=== PATIENT | female | born 1960 | race Caucasian/White ===

== ENCOUNTER → 2016-05-15 | Outpatient (CLI) | payer MEDICARE, OTHER ==
[2016-05-15 11:13] LABS: Basophils # (A) 0.1 k/uL (0-0.2); Basophils % (A) 1 %; CH 27.6; CHCM 32.8; Eosinophils # (A) 0.2 k/uL (0-0.7); Eosinophils % (A) 3 %; HCT 40.3 % (34.0-46.0); HDW 2.56; HGB 12.9 gm/dL (11.4-16.0); Luc # (Auto) 0.12; Luc % (Auto) 2; Lymphocytes # (A) 2.3 k/uL (1.0-4.8); Lymphocytes % (A) 28 %; MCV 84.6 fL (80.0-100.0); Mean Platelet Volume 7.1; Monocytes # (A) 0.4 k/uL (0-1.0); Monocytes % (A) 4 %; Neutrophils % (A) 62 %; RBC 4.76 m/uL (3.80-5.40); RDW 14.2 % (11.5-15.5); WBC 8.1 k/uL (3.8-10.6); WBC (Perox) 8.56
[2016-05-15 11:28] LABS: ALT 43 U/L (9-52); AST 24 U/L (14-36); Alkaline Phosphatase 90 U/L (38-126); Anion Gap 12 mmol/L; Blood Urea Nitrogen 9 mg/dL (7-17); Calcium 9.8 mg/dL (8.4-10.2); Carbon Dioxide 27 mmol/L (22-30); Chloride 101 mmol/L (98-107); Glucose 131 mg/dL (74-99); Non-African American GFR(MDRD) >60 (>60 ml/min/1.73 sqM); Potassium 4.2 mmol/L (3.5-5.1); Sodium 140 mmol/L (137-145); Total Bilirubin 0.5 mg/dL (0.2-1.3); Total Protein 6.7 g/dL (6.3-8.2)
[2016-05-15 11:51] LABS: Hemoglobin A1C 6.1 % (4.2-6.1)
[2016-05-15 13:32] LABS: Erythrocyte Sedimentation Rate 16 mm/hr (0-20)
== END | disposition home or self-care (01) ==
LOC: LABWHC1 10:39
PROVIDERS: ATTEND Internal Medicine
DX: E11.9 Type 2 diabetes mellitus without complications (principal); D64.9 Anemia, unspecified; A09 Infectious gastroenteritis and colitis, unspecified
CPT/HCPCS: 36415; 80053; 83036; 85025; 85652; 86677

== ENCOUNTER → 2016-06-19 | Outpatient (CLI) | payer MEDICARE ==
--- NOTE | 2016-06-19 15:22 | XR ---
EXAMINATION TYPE: XR foot complete RT, XR tibia fibula RT, XR ankle complete RT DATE OF EXAM ORDERED: 06/19/2016 3:09 PM HISTORY: right foot pain M79.671. COMPARISON: Previous ankle dated 08/02/2005. FINDINGS: No fracture, dislocation or other acute osseous lesion is seen. Views of the ankle demonstrate no fracture or dislocation. No ankle joint effusion is seen. There is a small plantar calcaneal spur. Note is made of a plantar calcaneal spur. Osseous structures about the foot demonstrate no acute osseous lesion. Once again a plantar calcaneal spurs noted.. IMPRESSION: 1. NO ACUTE OSSEOUS LESION. 2. SMALL, PLANTAR CALCANEAL SPUR.
== END | disposition home or self-care (01) ==
LOC: RADXRMAIN 14:33
PROVIDERS: ATTEND Internal Medicine
DX: M77.31 Calcaneal spur, right foot (principal)

== ENCOUNTER → 2016-08-23 | Outpatient (CLI) | payer MEDICARE ==
[2016-08-23 08:33] LABS: Basophils # (A) 0.1 k/uL (0-0.2); Basophils % (A) 1 %; CHCM 32.3; Eosinophils # (A) 0.3 k/uL (0-0.7); Eosinophils % (A) 3 %; HCT 37.4 % (34.0-46.0); HDW 2.52; HGB 12.3 gm/dL (11.4-16.0); Luc # (Auto) 0.17; Luc % (Auto) 1; Lymphocytes % (A) 24 %; MCH 27.5 pg (25.0-35.0); MCHC 32.8 g/dL (31.0-37.0); Mean Platelet Volume 6.5; Monocytes # (A) 0.6 k/uL (0-1.0); Monocytes % (A) 4 %; Neutrophils # (A) 8.7 k/uL (1.3-7.7); Neutrophils % (A) 68 %; RBC 4.45 m/uL (3.80-5.40); RDW 14.2 % (11.5-15.5); WBC 12.8 k/uL (3.8-10.6); WBC (Perox) 13.21
[2016-08-23 11:20] LABS: ALT 33 U/L (9-52); AST 20 U/L (14-36); Alkaline Phosphatase 82 U/L (38-126); Anion Gap 9 mmol/L; Blood Urea Nitrogen 13 mg/dL (7-17); C Reactive Protein 11.4 mg/L (<10.0); Calcium 10.3 mg/dL (8.4-10.2); Carbon Dioxide 29 mmol/L (22-30); Chloride 101 mmol/L (98-107); Cholesterol 148 mg/dL (<200); Creatine Kinase 77 U/L (30-135); Glucose 114 mg/dL (74-99); HDL Cholesterol 34 mg/dL (40-60); Non-African American GFR(MDRD) >60 (>60 ml/min/1.73 sqM); Potassium 4.2 mmol/L (3.5-5.1); Sodium 139 mmol/L (137-145); Total Bilirubin 0.3 mg/dL (0.2-1.3); Total Protein 6.1 g/dL (6.3-8.2); Triglycerides 210 mg/dL (<150); Uric Acid 4.6 mg/dL (3.7-7.4)
[2016-08-23 14:45] LABS: Erythrocyte Sedimentation Rate 11 mm/hr (0-20)
[2016-08-23 16:20] LABS: ANA w/Reflex to Titer NEGATIVE (NEGATIVE)
[2016-08-23 19:45] LABS: Hemoglobin A1C 6.6 % (4.2-6.1)
== END | disposition home or self-care (01) ==
LOC: LABWHC1 07:56
PROVIDERS: ATTEND Internal Medicine
DX: Z00.00 Encounter for general adult medical examination without abnormal findings (principal); E11.9 Type 2 diabetes mellitus without complications; E78.5 Hyperlipidemia, unspecified; I10 Essential (primary) hypertension; E55.9 Vitamin D deficiency, unspecified
CPT/HCPCS: 36415; 80053; 80061; 82306; 82550; 83036; 84443; 84550; 85025; 85652; 86038; 86140; 86225

== ENCOUNTER → 2016-09-21 | Outpatient (CLI) | payer MEDICARE ==
[2016-09-21 13:16] LABS: Calcium 10.1 mg/dL (8.4-10.2)
[2016-09-21 13:30] LABS: Ionized Calcium 5.3 mg/dL (4.5-5.3)
== END | disposition home or self-care (01) ==
LOC: LABWHC1 12:22
PROVIDERS: ATTEND Internal Medicine
DX: E83.52 Hypercalcemia (principal)
CPT/HCPCS: 36415; 82310; 82330

== ENCOUNTER → 2016-10-04 | Outpatient (CLI) | payer MEDICARE ==
--- NOTE | 2016-10-05 06:38 | XR ---
EXAMINATION TYPE: XR ankle complete RT, XR foot complete RT DATE OF EXAM: 10/04/2016 CLINICAL HISTORY: Right foot and ankle pain for 2 months. TECHNIQUE: Frontal, lateral and oblique images of the right ankle and foot are obtained. COMPARISON: Right ankle and foot x-ray June 19, 2016 FINDINGS: There is no acute fracture/dislocation evident in the right ankle. The ankle mortise appe ars within normal limits. Mild irregularities and spurring along medial malleolus is redemonstrated. There is mild diffuse subcutaneous edema slightly more prominent soft tissue swelling over the medial malleolus redemonstrated. Small inferior calcaneal spur is again seen. There is no acute fracture or dislocation evident in the right foot. Marked flexion third and fourth toes is redemonstrated. Joint spaces are maintained. Overlying soft tissue is unremarkable. IMPRESSION: There is inferior calcaneal spur redemonstrated. No significant change or new finding si nce prior study.
== END | disposition home or self-care (01) ==
LOC: RADXRMAIN 17:25
PROVIDERS: ATTEND Internal Medicine
DX: M77.31 Calcaneal spur, right foot (principal)

== ENCOUNTER 2016-10-14 13:44 | Emergency (ER) | payer MEDICARE ==
[2016-10-14] MEDS ORDERED: LORazepam 2 MG/ML SYRINGE IV STA (14:02)
[2016-10-14] MEDS ORDERED: ONDANSETRON 4 MG/2 ML VIAL IVP STA (14:02)
[2016-10-14] MEDS ORDERED: SODIUM CHLORIDE 0.9% 500 ML IV STA (14:02)
[2016-10-14] MEDS ORDERED: diphenhydrAMINE 50 MG/ML 1 ML VIAL IVP STA (14:02)
--- NOTE | 2016-10-14 14:03 | ED ---
General Adult HPI - General Chief complaint: Allergic Reaction Stated complaint: POSS ALLERGIC REACTION Time Seen by Provider: 10/14/16 13:47 Source: EMS, RN notes reviewed, old records reviewed Mode of arrival: EMS Limitations: no limitations - History of Present Illness Initial comments: this is a [age] female to the ER for evaluation of possible UTI. Possible medication reaction to Bactrim. Patient states she has history of UTI and is taking Bactrim in the past with similar reaction. Today she had some burning and increased urination comment discolored urine. She did take one Bactrim this morning and became very shaky, with a lot of numbness and tingling. No rash no shortness of breath no stridor. No sore throat, no feeling of throat closing, patient states no modifying factors for symptoms, coming to the ER with close same symptoms - Related Data Home Medications Medication Instructions Recorded Confirmed Atenolol [Tenormin] 25 mg PO BID 11/25/13 10/14/16 Atorvastatin [Lipitor] 40 mg PO HS 11/25/13 10/14/16 FLUoxetine HCL 40 mg PO DAILY 11/25/13 10/14/16 Glimepiride [Amaryl] 2 mg PO AC-BRKFST 11/25/13 10/14/16 Cholecalciferol [Vitamin D3] 1,000 unit PO BID 12/30/15 10/14/16 Gabapentin [Neurontin] 100 mg PO TID 12/30/15 10/14/16 Lisinopril [Zestril] 20 mg PO BID 12/30/15 10/14/16 metFORMIN HCL 1,000 mg PO BID 12/30/15 10/14/16 Melatonin 5 mg PO HS 10/14/16 10/14/16 [place]-3 Fatty Acids/Fish Oil [Fish 1 cap PO TID 10/14/16 10/14/16 Oil 1,000 mg Softgel] Sulfamethox-Tmp 800-160Mg [Bactrim 1 tab PO Q12HR 10/14/16 10/14/16 DS 800-160 mg] Vitamin B Complex 1 cap PO DAILY 10/14/16 10/14/16 Previous Rx's Medication Instructions Recorded Nitrofurantoin Monohyd/M-Cryst 100 mg PO Q12HR #10 cap 10/14/16 [Macrobid] Allergies Allergy/AdvReac Type Severity Reaction Status Date / Time hydrocodone bitartrate Allergy Unknown Verified 10/14/16 14:21 [From Vicodin] Sulfa (Sulfonamide AdvReac "PINS AND Verified 10/14/16 14:21 Antibiotics) NEEDLES FEELING" Review of Systems ROS Statement: Those systems with pertinent positive or pertinent negative responses have been documented in the HPI. ROS Other: All systems not noted in ROS Statement are negative. Past Medical History Past Medical History: Diabetes Mellitus, Hyperlipidemia, Hypertension Additional Past Medical History / Comment(s): PARKINSONS, BACK PAIN History of Any Multi-Drug Resistant Organisms: None Reported Past Surgical History: Cholecystectomy, Hysterectomy, Tonsillectomy, Tubal Ligation Additional Past Surgical History / Comment(s): PARKINSONS Past Psychological History: No Psychological Hx Reported Smoking Status: Current every day smoker Past Alcohol Use History: Rare Past Drug Use History: None Reported General Exam - General Exam Comments Initial Comments: No rash, no stridor, no distress Limitations: no limitations General appearance: alert, in no apparent distress Head exam: Present: atraumatic, normocephalic, normal inspection Eye exam: Present: normal appearance, PERRL, EOMI. Absent: scleral icterus, conjunctival injection, periorbital swelling ENT exam: Present: normal exam, mucous membranes moist Neck exam: Present: normal inspection. Absent: tenderness, meningismus, lymphadenopathy Respiratory exam: Present: normal lung sounds bilaterally. Absent: respiratory distress, wheezes, rales, rhonchi, stridor Cardiovascular Exam: Present: regular rate, normal rhythm, normal heart sounds. Absent: systolic murmur, diastolic murmur, rubs, gallop, clicks GI/Abdominal exam: Present: soft, normal bowel sounds. Absent: distended, tenderness, guarding, rebound, rigid Extremities exam: Present: normal inspection, full ROM, normal capillary refill. Absent: tenderness, pedal edema, joint swelling, calf tenderness Back exam: Present: normal inspection Neurological exam: Present: alert, oriented X3, CN II-XII intact Psychiatric exam: Present: normal affect, normal mood Skin exam: Present: warm, dry, intact, normal color. Absent: rash Course Vital Signs 10/14/16 10/14/16 10/14/16 13:49 14:36 14:59 Temperature 98.7 F Pulse Rate 72 68 71 Respiratory 18 18 20 Rate Blood Pressure 159/76 163/70 187/86 O2 Sat by Pulse 96 93 L 97 Oximetry - Reevaluation(s) Reevaluation #1: 10/14/16 15:39 Symptoms improved Medical Decision Making - Medical Decision Making [id number] med ER for evaluation of ALLERGIC versus medication reaction, patient told to stop medication will switch antibiotics positive urinary check infection and patient can be discharged home Disposition Clinical Impression: Allergic reaction, Adverse reaction to drug, UTI (urinary tract infection) Disposition: HOME SELF-CARE Condition: Good Instructions: Urinary Tract Infection in Women (ED), Anaphylaxis (ED) Prescriptions: Nitrofurantoin Monohyd/M-Cryst [Macrobid] 100 mg PO Q12HR #10 cap Referrals: Valentino Juarez MD [Primary Care Provider] - 1-2 days
[2016-10-14 15:16] LABS: Appearance,Urine Cloudy (Clear); Bacteria,Urine Occasional /hpf; Bilirubin,Urine Negative (Negative); Glucose,Urine (UA) Negative (Negative); Ketones,Urine Negative (Negative); Leukocyte Esterase,Urine Negative (Negative); Mucus,Urine Rare /hpf; Nitrite,Urine Negative (Negative); PH, Urine 7.5 (5.0-8.0); Particle Count 4605; Protein,Urine Trace (Negative); Specific Gravity,Urine 1.009 (1.001-1.035); Squamous Epithelial Cell,Urine 1 /hpf (0-4); UA Billing (MACRO vs. MICRO) MICRO; Urobilinogen,Urine <2.0 mg/dL (<2.0); WBC,Urine 3 /hpf (0-5)
[2016-10-14 15:56] VITALS: BP 159/109; PULSE 68; RESP 18; TEMP 98.4
== END 2016-10-14 15:56 | disposition home or self-care (01) ==
LOC: EC 13:44
DX: R20.2 Paresthesia of skin (principal); T37.0X5A Adverse effect of sulfonamides, initial encounter; N39.0 Urinary tract infection, site not specified; E11.9 Type 2 diabetes mellitus without complications; I10 Essential (primary) hypertension; E78.5 Hyperlipidemia, unspecified; F17.200 Nicotine dependence, unspecified, uncomplicated; Z88.2 Allergy status to sulfonamides; Z88.5 Allergy status to narcotic agent; Z79.84 Long term (current) use of oral hypoglycemic drugs; Z79.899 Other long term (current) drug therapy
CPT/HCPCS: 81001; 87086; 99284; 96374; 96375 ×2; 96361; J2060; J1200; J2405

== ENCOUNTER → 2017-08-31 | Outpatient (CLI) | payer MEDICARE ==
[2017-08-31 10:02] LABS: ALT 62 U/L (9-52); AST 33 U/L (14-36); Albumin 4.3 g/dL (3.5-5.0); Alkaline Phosphatase 78 U/L (38-126); Anion Gap 13 mmol/L; Blood Urea Nitrogen 12 mg/dL (7-17); C Reactive Protein 6.4 mg/L (<10.0); Calcium 10.2 mg/dL (8.4-10.2); Carbon Dioxide 26 mmol/L (22-30); Chloride 102 mmol/L (98-107); Cholesterol 148 mg/dL (<200); Creatine Kinase 112 U/L (30-135); Glucose 149 mg/dL (74-99); HDL Cholesterol 28 mg/dL (40-60); LDL Cholesterol,Calculated 74 mg/dL (0-99); Potassium 4.4 mmol/L (3.5-5.1); Sodium 141 mmol/L (137-145); Total Bilirubin 0.3 mg/dL (0.2-1.3); Total Protein 6.2 g/dL (6.3-8.2); Triglycerides 228 mg/dL (<150); Uric Acid 4.1 mg/dL (3.7-7.4)
[2017-08-31 10:03] LABS: Basophils # (A) 0.1 k/uL (0-0.2); Basophils % (A) 1 %; Eosinophils # (A) 0.2 k/uL (0-0.7); Eosinophils % (A) 3 %; HCT 39.9 % (34.0-46.0); HGB 13.1 gm/dL (11.4-16.0); Lymphocytes # (A) 2.4 k/uL (1.0-4.8); Lymphocytes % (A) 25 %; MCH 27.3 pg (25.0-35.0); MCHC 32.9 g/dL (31.0-37.0); MCV 82.9 fL (80.0-100.0); Mean Platelet Volume 6.5; Monocytes # (A) 0.5 k/uL (0-1.0); Monocytes % (A) 5 %; Neutrophils # (A) 6.1 k/uL (1.3-7.7); Neutrophils % (A) 65 %; Platelet Count 348 k/uL (150-450); RBC 4.81 m/uL (3.80-5.40); RDW 13.5 % (11.5-15.5); WBC 9.4 k/uL (3.8-10.6)
[2017-08-31 11:20] LABS: Erythrocyte Sedimentation Rate 7 mm/hr (0-20)
== END | disposition home or self-care (01) ==
LOC: LABWHC1 09:07
PROVIDERS: ATTEND Internal Medicine
DX: E11.9 Type 2 diabetes mellitus without complications (principal); E78.5 Hyperlipidemia, unspecified; I10 Essential (primary) hypertension; M54.5 Low back pain
CPT/HCPCS: 36415; 80053; 80061; 82306; 82550; 83036; 84550; 85025; 85652; 86140

== ENCOUNTER → 2017-09-11 | Outpatient (CLI) | payer MEDICARE ==
--- NOTE | 2017-09-11 13:42 | XR ---
EXAMINATION TYPE: XR lumbosacral spine min 4V DATE OF EXAM: 09/11/2017 CLINICAL HISTORY: Pain from fall TECHNIQUE: Frontal, lateral, and oblique images of the lumbar spine are obtained. COMPARISON: CT abdomen pelvis December 30, 2015 FINDINGS: There are 5 lumbar type vertebral bodies identified. The lumbar spine shows slight scolio tic curvature without evidence of acute fracture or dislocation. There is persistent slight grade 1 a nterolisthesis L4 on L5. Vertebral body heights remain within normal limits. There is mild disc spac e narrowing L4-L5 level redemonstrated. There is mild to moderate disc space narrowing L5-S1 level re demonstrated. The oblique images appear within normal limits. Facet arthropathy lower lumbar levels i s again seen. Cholecystectomy clips are redemonstrated in the overlying soft tissue. IMPRESSION: No acute fracture or dislocation is seen in the lumbar spine.
--- NOTE | 2017-09-11 13:43 | XR ---
EXAMINATION TYPE: XR thoracic spine complete DATE OF EXAM: 09/11/2017 CLINICAL HISTORY: Fall injury 6 weeks ago with mid back pain. TECHNIQUE: Frontal, lateral, and swimmer's view of thoracic spine are obtained. COMPARISON: None. FINDINGS: Thoracic spine show satisfactory alignment without evidence of acute fracture or dislocatio n. Vertebral body heights and disc space heights are preserved. Mild to minimal multilevel anterior spurring is present. Visualized ribs are unremarkable bilaterally. Cholecystectomy clips are appreci ated. IMPRESSION: No acute fracture or dislocation is seen in the thoracic spine.
== END | disposition home or self-care (01) ==
LOC: RADXRMAIN 13:10
PROVIDERS: ATTEND Internal Medicine
DX: M54.17 Radiculopathy, lumbosacral region (principal); M51.37 Other intervertebral disc degeneration, lumbosacral region
CPT/HCPCS: 72072; 72110

== ENCOUNTER → 2017-12-13 | Outpatient (CLI) | payer MEDICARE ==
[2017-12-13 10:18] LABS: Basophils # (A) 0.1 k/uL (0-0.2); Basophils % (A) 1 %; Eosinophils # (A) 0.2 k/uL (0-0.7); Eosinophils % (A) 2 %; HCT 38.9 % (34.0-46.0); HGB 12.4 gm/dL (11.4-16.0); Lymphocytes # (A) 2.2 k/uL (1.0-4.8); Lymphocytes % (A) 22 %; MCH 26.6 pg (25.0-35.0); MCHC 31.9 g/dL (31.0-37.0); MCV 83.5 fL (80.0-100.0); Mean Platelet Volume 6.3; Monocytes # (A) 0.4 k/uL (0-1.0); Monocytes % (A) 4 %; Neutrophils # (A) 6.9 k/uL (1.3-7.7); Neutrophils % (A) 70 %; Platelet Count 332 k/uL (150-450); RBC 4.66 m/uL (3.80-5.40); RDW 14.1 % (11.5-15.5); WBC 9.8 k/uL (3.8-10.6)
[2017-12-13 10:33] LABS: ALT 63 U/L (9-52); AST 35 U/L (14-36); Albumin 4.2 g/dL (3.5-5.0); Alkaline Phosphatase 77 U/L (38-126); Anion Gap 9 mmol/L; Blood Urea Nitrogen 12 mg/dL (7-17); C Reactive Protein 7.5 mg/L (<10.0); Carbon Dioxide 29 mmol/L (22-30); Chloride 101 mmol/L (98-107); Cholesterol 154 mg/dL (<200); Creatine Kinase 69 U/L (30-135); Glucose 143 mg/dL (74-99); HDL Cholesterol 27 mg/dL (40-60); LDL Cholesterol,Calculated 89 mg/dL (0-99); Potassium 4.3 mmol/L (3.5-5.1); Sodium 139 mmol/L (137-145); Total Bilirubin 0.4 mg/dL (0.2-1.3); Total Protein 6.5 g/dL (6.3-8.2); Triglycerides 189 mg/dL (<150); Uric Acid 4.5 mg/dL (3.7-7.4)
[2017-12-13 11:13] LABS: Erythrocyte Sedimentation Rate 13 mm/hr (0-20)
[2017-12-13 19:37] LABS: Hemoglobin A1C 7.1 % (4.0-6.0)
[2017-12-13 19:42] LABS: Anti-DNA, DS unit <1.0 IU/mL; DNA Double-Stranded NEGATIVE (NEGATIVE)
== END | disposition home or self-care (01) ==
LOC: LABWHC1 08:44
PROVIDERS: ATTEND Internal Medicine
DX: Z00.00 Encounter for general adult medical examination without abnormal findings (principal); E11.9 Type 2 diabetes mellitus without complications; E78.5 Hyperlipidemia, unspecified; I10 Essential (primary) hypertension; E55.9 Vitamin D deficiency, unspecified
CPT/HCPCS: 36415; 80053; 80061; 82306; 82550; 83036; 84443; 84550; 85025; 85652; 86038; 86140; 86225

== ENCOUNTER → 2018-07-24 | Outpatient (CLI) | payer MEDICARE ==
[2018-07-24 20:45] LABS: Hemoglobin A1C 7.3 % (4.0-6.0)
[2018-07-24 20:52] LABS: Creatinine,Urine Random 74.2 mg/dL
[2018-07-24 21:07] LABS: Total Protein,Urine Random 9.6 mg/dL (0.0-13.5)
== END | disposition home or self-care (01) ==
LOC: LABWHC1 10:22
PROVIDERS: ATTEND Internal Medicine
DX: E11.9 Type 2 diabetes mellitus without complications (principal); R80.9 Proteinuria, unspecified
CPT/HCPCS: 36415; 82570; 82947; 83036; 84156

== ENCOUNTER → 2018-11-06 | Outpatient (CLI) | payer MEDICARE ==
--- NOTE | 2018-11-06 08:27 | XR ---
EXAMINATION TYPE: XR knee complete RT DATE OF EXAM: 11/06/2018 CLINICAL HISTORY: Right knee pain after fall February. TECHNIQUE: Three views of the right knee are obtained. COMPARISON: None. FINDINGS: There is no acute fracture/dislocation evident in right knee. However there is subtle yelena ency over the lateral tibial eminence that appears well-corticated on the frontal view. The tri-andrew rtment joint spaces appear aligned however there are small tricompartmental osteophytes. The overlyi ng soft tissue appears unremarkable. IMPRESSION: 1. No acute fracture or dislocation in the right knee. 2. Possible old corticated chip fracture of the lateral tibial eminence that appears healed although correlation for stability of the posterior cruciate ligament is recommended with clinical exam to det ermine the need for MRI. 3. Mild tricompartment arthrosis.
[2018-11-06 16:20] LABS: African American GFR (CKD) 94.2 (60.0-200.0); Anion Gap 10.5 mmol/L (4.00-12.00); Calcium 9.8 mg/dL (8.7-10.3); Carbon Dioxide 25.5 mmol/L (21.6-31.8); Non-African American GFR(CKD) 81.3 (60.0-200.0); Potassium 4.3 mmol/L (3.5-5.5)
[2018-11-06 17:19] LABS: Hemoglobin A1C 6.9 % (4.0-6.0)
== END | disposition home or self-care (01) ==
LOC: LABWHC1 07:39
PROVIDERS: ATTEND Internal Medicine
DX: M17.11 Unilateral primary osteoarthritis, right knee (principal); I10 Essential (primary) hypertension; E11.40 Type 2 diabetes mellitus with diabetic neuropathy, unspecified
CPT/HCPCS: 36415; 80048; 83036

== ENCOUNTER → 2018-12-09 | Outpatient (CLI) | payer MEDICARE ==
--- NOTE | 2018-12-11 08:57 | MM ---
Reason for exam: screening (asymptomatic). Last mammogram was performed 3 years and 7 months ago. History: Patient is postmenopausal and has history of other cancer at age 30. Family history of breast cancer in 2 maternal aunts and breast cancer in maternal grandmother. Physical Findings: A clinical breast exam by your physician is recommended on an annual basis and results should be correlated with mammographic findings. MG 3D Screening Mammo W/Cad Bilateral CC and MLO view(s) were taken. Prior study comparison: May 13, 2015, mammogram, performed at [facility]. January 07, 2014, mammogram, performed at [facility]. There are scattered fibroglandular densities. No significant changes when compared with prior studies. ASSESSMENT: Negative, BI-RAD 1 RECOMMENDATION: Routine screening mammogram of both breasts in 1 year.
== END ==
LOC: RADMAMWWP 13:33
PROVIDERS: ATTEND Internal Medicine
DX: Z12.31 Encounter for screening mammogram for malignant neoplasm of breast (principal)
CPT/HCPCS: 77063; 77067

== ENCOUNTER → 2018-12-12 | Outpatient (CLI) | payer MEDICARE ==
--- NOTE | 2018-12-15 15:17 | MR ---
EXAMINATION TYPE: MR knee RT wo con DATE OF EXAM: 12/12/2018 COMPARISON: Outside radiographs 11/29/2018 HISTORY: 58-year-old female with right knee pain, fall/injury, weakness, hx Parkinson's TECHNIQUE: Multiplanar, multisequence imaging of the right knee is performed without IV contrast. FINDINGS: The ACL, PCL, MCL, and LCL complex are intact. There is a complex tear of the posterior horn and body of the medial meniscus. The body is mildly ext ruded. Moderate thinning of articular cartilage within the mid weightbearing and peripheral aspect of the me dial compartment. Mild marginal spurring is noted. There is a partial tear involving the posterior horn of the lateral meniscus near the posterior root. Small focal moderate thickness cartilage fissure measuring 6 mm AP by 3 mm wide along the mid weight bearing aspect of the lateral femoral condyle. Mild to moderate irregular thinning of patellar articular cartilage and mild fissuring of mid trochle ar articular cartilage is well. Marginal spurring is present in the patellofemoral compartment. Extensor mechanism is intact. Mild prepatellar soft tissue swelling. Underlying small knee joint effu gracia without significant Medina's cyst. Normal popliteal artery anatomy. Generalized muscular atrophy. No suspicious bone marrow replacement. IMPRESSION: 1. Mild to moderate medial and patellofemoral compartment osteoarthrosis. Additional small focal 6 x 3 mm cartilage fissure in the mid weightbearing aspect of the lateral compartment. 2. Complex tear of the posterior horn and body of the medial meniscus with mild extrusion of the body . 3. Partial tear near the posterior root of the lateral meniscus. 4. Small knee joint effusion.
== END | disposition home or self-care (01) ==
LOC: RADMRIMAIN 12:47
PROVIDERS: ATTEND Orthopaedic Surgery
DX: M17.11 Unilateral primary osteoarthritis, right knee (principal); S83.231A Complex tear of medial meniscus, current injury, right knee, initial encounter; S83.281A Other tear of lateral meniscus, current injury, right knee, initial encounter

== ENCOUNTER → 2018-12-30 | Outpatient (CLI) | payer MEDICARE ==
[2018-12-30 15:06] LABS: Basophils # (A) 0.1 k/uL (0-0.2); Basophils % (A) 1 %; Eosinophils # (A) 0.4 k/uL (0-0.7); Eosinophils % (A) 3 %; HCT 38.4 % (34.0-46.0); HGB 12.7 gm/dL (11.4-16.0); Lymphocytes # (A) 4.9 k/uL (1.0-4.8); Lymphocytes % (A) 35 %; MCH 27.6 pg (25.0-35.0); MCHC 33.1 g/dL (31.0-37.0); MCV 83.5 fL (80.0-100.0); Mean Platelet Volume 5.6; Monocytes # (A) 0.8 k/uL (0-1.0); Monocytes % (A) 6 %; Neutrophils # (A) 7.4 k/uL (1.3-7.7); Neutrophils % (A) 53 %; Platelet Count 471 k/uL (150-450); RDW 13.6 % (11.5-15.5); WBC 13.9 k/uL (3.8-10.6)
[2018-12-30 15:13] LABS: Potassium 4.1 mmol/L (3.5-5.1)
== END | disposition home or self-care (01) ==
LOC: LABPAT 14:20
PROVIDERS: ATTEND Orthopaedic Surgery
DX: Z01.818 Encounter for other preprocedural examination (principal); Z01.812 Encounter for preprocedural laboratory examination; M23.91 Unspecified internal derangement of right knee
CPT/HCPCS: 36415; 80051; 85025; 93005

== ENCOUNTER 2019-01-02 12:27 | Day surgery (SDC) | payer MEDICARE, OTHER ==
[2018-12-30 11:15] VITALS: BMI 30.7
--- NOTE | 2019-01-01 18:34 | HP ---
HISTORY AND PHYSICAL DATE OF SURGERY: 01/02/2019 [place] Rm is a 58-year-old patient seen with progressive right knee pain. We discussed options for treatment. She elected to proceed with right knee arthroscopy. Consent was obtained. PAST MEDICAL HISTORY: 1. Hypertension. 2. Jxz-jrdtxcv-fydeisbde diabetes. 3. Depression. PAST SURGICAL HISTORY: 1. Cholecystectomy. 2. Hysterectomy. DAILY MEDICATIONS: 1. Atenolol. 2. Atorvastatin. 3. Fluoxetine. 4. Amlodipine. 5. Lisinopril. 6. Metformin. ALLERGIES: VICODIN. SOCIAL HISTORY: She smokes one pack of cigarettes daily. PHYSICAL EVALUATION OF THE RIGHT KNEE: Range of motion is negative 2/3 to120. Tenderness along the medial joint line. Tenderness along the lateral joint line. Positive medial Azeb's. Positive lateral Azeb's. Mild effusion. Ligaments stable. Hip rotation without pain. Distal neurovascular exam intact. RADIOGRAPHS: Right knee radiographs revealed mild osteoarthritic changes of the medial compartment and moderate osteoarthritic changes of the patellofemoral compartment. An MRI of the right knee revealed medial and lateral meniscal tears. IMPRESSION: 1. Internal derangement, right knee, with medial and lateral meniscal tears. 2. Right knee osteoarthritis. 3. Hypertension. 4. Hyperlipidemia. 5. Goa-ppdgemo-rckxwuayt diabetes. PLAN: Right knee arthroscopy with partial meniscectomy and debridement. MMODL / IJN: [id number] /
[~2019-01-02 12:27] MED LIST: HYDROmorphone 0.5 MG/0.5 ML SYRINGE IVP PRN; LACTATED RINGERS 1,000 ML IV SCH
[2019-01-02] MEDS ORDERED: ONDANSETRON 4 MG/2 ML VIAL IVP ONE (12:52)
[2019-01-02] MEDS ORDERED: LIDOCAINE 1% 20 ML VIAL (10MG/ML) FOR IV START INTRADERMA ONE (12:52)
[2019-01-02] MEDS ORDERED: DEXAMETHASONE SOD PHOS (MDV) 100 MG/10 ML VIAL IV ONE (12:53)
[2019-01-02 13:03] LABS: Glucose,Whole Blood 128 mg/dL (75-99)
[2019-01-02] MEDS ORDERED: ePHEDrine SULFATE/0.9% NACL/PF 50 MG/5 ML SYRINGE IV ONE (13:22)
[2019-01-02] MEDS ORDERED: SUCCINYLCHOLINE CHLORIDE 100 MG/5 ML SYR IV ONE (13:22)
[2019-01-02] MEDS ORDERED: BUPIVACAINE (PF) 0.25% 30 ML VIAL INTRAARTIC ONE (13:22)
[2019-01-02] MEDS ORDERED: PROPOFOL 10 MG/ML 20 ML VIAL IV ONE (13:22)
[2019-01-02] MEDS ORDERED: KETOROLAC 30 MG/ML 1 ML VIAL ONE (13:22)
[2019-01-02] MEDS ORDERED: fentaNYL (PF) 50 MCG/ML 2 ML AMP ONE (13:22)
[2019-01-02] MEDS ORDERED: MIDAZOLAM 2 MG/2 ML VIAL ONE (13:22)
[2019-01-02] MEDS ORDERED: LACTATED RINGERS 1,000 ML IV ONE (14:00)
--- NOTE | 2019-01-02 14:18 | P.OP ---
Date of Procedure: 01/02/19 Preoperative Diagnosis: Internal derangement right knee Postoperative Diagnosis: 1. Tear medial meniscus right knee 2. Grade 2/3 chondromalacia medial femoral condyle right knee 3. Grade 3 chondromalacia lateral femoral condyle right knee 4. Grade 2 chondromalacia patella right knee 5. Reactive synovitis medial, lateral and suprapatellar compartments right knee Procedure(s) Performed: 1. Arthroscopic partial medial meniscectomy right knee 2. Arthroscopic chondroplasty medial femoral condyle right knee 3. Arthroscopic chondroplasty lateral femoral condyle right knee 4. Arthroscopic chondroplasty patella right knee 5. Arthroscopic partial synovectomy medial, lateral and suprapatellar compartments right knee Anesthesia: MELISSAA, local Surgeon: Rigoberto Pacheco Estimated Blood Loss (ml): 8 Pathology: none sent Condition: stable Disposition: PACU Indications for Procedure: 58-year-old patient seen with progressive right knee pain. After having treatment options discussed, she elected to proceed with arthroscopy. Operative Findings: See description of procedure Description of Procedure: Patient was taken to the operative suite. Patient underwent a general anesthetic by the department of anesthesia. Patient was given preoperative antibiotics. The right lower extremity was placed in a well-padded arthroscopic leg navarro. The right leg was prepped and draped in the normal sterile orthopedic fashion. A lateral parapatellar incision was made. Trochar were inserted. Arthroscopy was initiated. Suprapatellar pouch revealed diffuse thick reactive synovitis. The patellofemoral joint appeared to articulate congruently. There was grade 2 chondromalacia of the patella with some osteochondral flap tears present.. The scope was guided into the medial gutter. No loose bodies or plica were identified. The scope was then guided into the medial compartment. A medial parapatellar incision was made. Trocar inserted followed by probe. There was a radial tear posterior horn medial meniscus. There were grade 2/3 chondromalacia changes of the medial femoral condyle with some osteochondral flap tears present. There was thick reactive synovitis anteriorly. I performed a partial medial meniscectomy getting down to stable meniscal tissue. I performed a chondroplasty of the medial femoral condyle down to stable osteochondral tissue. I performed a partial synovectomy decompressing the reactive synovitis anteriorly. The residual meniscus was stable. There was good decompression of the synovitis. The residual osteochondral surface appeared stable. Scope and probe were then guided into the intercondylar notch. Cruciates were identified, probed and found to be stable. The scope and probe were then guided into lateral compartment. There was some fraying of the midbody lateral meniscus. Were grade 3 chondral changes lateral femoral condyle with some large osteochondral flap tears present. There was thick reactive synovitis anteriorly. I debrided those areas of mild fraying with a motorized shaver. I performed a chondroplasty of the lateral femoral condyle getting down to stable osteochondral tissue. I performed a partial synovectomy decompressing the reactive synovitis. The residual osteochondral surface appeared stable. There was good decompression of the synovitis. The scope was in guided back into the suprapatellar compartment. I introduced a motorized shaver into the suprapatellar compartment. I debrided some piecemeal fragments of meniscus I encountered. I performed a partial synovectomy decompressing the reactive synovitis. Shaver was removed. I took one more look around the entire knee, no residual debris. Instruments were now removed from the joint. The joint was infiltrated with .25% Marcaine. Steri-Strips were applied to the portal sites. Sterile dressings were applied. The patient was placed into a CHIQUITA hose. No tourniquet was utilized. The patient was awakened, transferred to a bed and taken to recovery stable satisfactory condition.
[2019-01-02 14:26] VITALS: TEMP 96.2
[2019-01-02 15:58] VITALS: BP 113/74; PULSE 76; RESP 18
== END 2019-01-02 16:21 | disposition home or self-care (01) ==
LOC: OR 12:27
PROVIDERS: ATTEND Orthopaedic Surgery
DX: S83.241A Other tear of medial meniscus, current injury, right knee, initial encounter (principal); X58.XXXA Exposure to other specified factors, initial encounter; M22.41 Chondromalacia patellae, right knee; M65.861 Other synovitis and tenosynovitis, right lower leg; M17.11 Unilateral primary osteoarthritis, right knee; I10 Essential (primary) hypertension; E11.9 Type 2 diabetes mellitus without complications; F17.219 Nicotine dependence, cigarettes, with unspecified nicotine-induced disorders; I25.10 Atherosclerotic heart disease of native coronary artery without angina pectoris; E78.5 Hyperlipidemia, unspecified; I25.2 Old myocardial infarction; F32.9 Major depressive disorder, single episode, unspecified; G20 Parkinson's disease; F39 Unspecified mood [affective] disorder; Z90.49 Acquired absence of other specified parts of digestive tract; Z90.710 Acquired absence of both cervix and uterus; Z79.84 Long term (current) use of oral hypoglycemic drugs; Z79.899 Other long term (current) drug therapy; Z88.5 Allergy status to narcotic agent
CPT/HCPCS: 29881; 29876; J2250; J2405; J3010; J1885; J1100; J0330; J2704; J1170

== ENCOUNTER → 2019-02-15 | Outpatient (CLI) | payer MEDICARE, OTHER ==
[2019-02-15 08:35] LABS: Basophils % (A) 0 %; Eosinophils # (A) 0.3 k/uL (0-0.7); Eosinophils % (A) 3 %; HCT 37.6 % (34.0-46.0); HGB 12.5 gm/dL (11.4-16.0); Lymphocytes # (A) 2.6 k/uL (1.0-4.8); Lymphocytes % (A) 30 %; MCHC 33.2 g/dL (31.0-37.0); MCV 84.2 fL (80.0-100.0); Mean Platelet Volume 5.7; Monocytes # (A) 0.4 k/uL (0-1.0); Monocytes % (A) 4 %; Neutrophils # (A) 5.1 k/uL (1.3-7.7); Neutrophils % (A) 60 %; Platelet Count 335 k/uL (150-450); RBC 4.47 m/uL (3.80-5.40); RDW 13.8 % (11.5-15.5); WBC 8.5 k/uL (3.8-10.6)
[2019-02-15 09:55] LABS: Erythrocyte Sedimentation Rate 10 mm/hr (0-20)
[2019-02-15 16:48] LABS: African American GFR (CKD) 94.2 (60.0-200.0); Albumin 4.4 g/dL (3.80-4.90); Albumin/Globulin Ratio 2.93 (1.60-3.17); Anion Gap 7.3 mmol/L (4.00-12.00); BUN/Creat Ratio 13.75 Ratio (12.00-20.00); Calcium 9.8 mg/dL (8.7-10.3); Carbon Dioxide 29.7 mmol/L (21.6-31.8); Chol/HDL Ratio 5.21; Globulin 1.5 g/dL (1.6-3.3); LDL Cholesterol,Calculated 77.2 mg/dL (0.0-131.0); Non-African American GFR(CKD) 81.3 (60.0-200.0); Potassium 4.2 mmol/L (3.5-5.5); Total Bilirubin 0.3 mg/dL (0.2-1.2); Total Protein 5.9 g/dL (6.2-8.2); VLDL Calculation 40.8 mg/dL (5.00-40.00)
[2019-02-15 20:23] LABS: Hemoglobin A1C 7.1 % (4.0-6.0)
== END | disposition home or self-care (01) ==
LOC: LABWHC1 08:06
PROVIDERS: ATTEND Internal Medicine
DX: E11.9 Type 2 diabetes mellitus without complications (principal); E78.5 Hyperlipidemia, unspecified; I10 Essential (primary) hypertension
CPT/HCPCS: 36415; 80053; 80061; 83036; 85025; 85652

== ENCOUNTER → 2019-06-02 | Outpatient (CLI) | payer MEDICARE ==
[2019-06-02 16:11] LABS: African American GFR (CKD) 93.5 (60.0-200.0); Anion Gap 6.7 mmol/L (4.00-12.00); Calcium 9.9 mg/dL (8.7-10.3); Carbon Dioxide 29.3 mmol/L (21.6-31.8); Non-African American GFR(CKD) 80.7 (60.0-200.0); Potassium 4.9 mmol/L (3.5-5.5)
[2019-06-02 16:17] LABS: Hemoglobin A1C 7.6 % (4.0-6.0)
== END | disposition home or self-care (01) ==
LOC: LABWHC1 07:44
PROVIDERS: ATTEND Internal Medicine
DX: I10 Essential (primary) hypertension (principal); E87.8 Other disorders of electrolyte and fluid balance, not elsewhere classified; E11.65 Type 2 diabetes mellitus with hyperglycemia
CPT/HCPCS: 36415; 80048; 83036

== ENCOUNTER → 2019-09-18 | Outpatient (CLI) | payer MEDICARE ==
--- NOTE | 2019-09-19 07:59 | XR ---
EXAMINATION TYPE: XR cervical spine comp DATE OF EXAM: 09/18/2019 COMPARISON: None HISTORY: Pain and numbness TECHNIQUE: Five-view cervical spine FINDINGS: The prevertebral space is normal. Some disc space narrowing is present C6-7. Posterior spin al lamellar line is intact. Foramen are patent. Odontoid views are limited IMPRESSION: 1. No acute osseous abnormality within the visualized cervical spine. 2. Mild degenerative disc changes C6-7
== END | disposition home or self-care (01) ==
LOC: RADXRMAIN 15:56
PROVIDERS: ATTEND Internal Medicine
DX: M50.30 Other cervical disc degeneration, unspecified cervical region (principal)
CPT/HCPCS: 72050

== ENCOUNTER → 2019-12-22 | Outpatient (CLI) | payer MEDICARE ==
--- NOTE | 2019-12-23 07:16 | XR ---
EXAMINATION TYPE: XR Hip Complete LT DATE OF EXAM: 12/22/2019 COMPARISON: 07/22/2014 HISTORY: Pain TECHNIQUE: 2 views submitted FINDINGS: There is no evidence of erosive change or acute fracture. There is hypertrophic change of the acetabu lum and mild concentric narrowing of the joint space. Vascular calcifications in the pelvis. IMPRESSION: 1. Mild arthropathy correlate for femoral acetabular impingement.
--- NOTE | 2019-12-23 07:20 | XR ---
EXAMINATION TYPE: XR sacroiliac joint comp BILAT DATE OF EXAM: 12/22/2019 COMPARISON: NONE HISTORY: Pain TECHNIQUE: 3 views submitted FINDINGS: SI joints are symmetric. No erosive change or sclerosis. Minimal spurring hypertrophic change along the inferior margin of the SI joints. Vascular calcifications in the pelvis. Mild facet arthropathy noted. Mild degenerative ch kaylyn lower lumbar spine. IMPRESSION: 1. No diagnostic evidence of sacroiliitis. Minimal spurring along the inferior margin of the SI joint bilaterally. No erosive changes.
== END | disposition home or self-care (01) ==
LOC: RAD 15:39
PROVIDERS: ATTEND Internal Medicine
DX: M12.852 Other specific arthropathies, not elsewhere classified, left hip (principal); M81.0 Age-related osteoporosis without current pathological fracture
CPT/HCPCS: 72202; 73502

== ENCOUNTER → 2020-02-27 | Outpatient (CLI) | payer MEDICARE ==
[2020-02-27 10:14] LABS: Basophils # (A) 0.1 k/uL (0-0.2); Basophils % (A) 1 %; Eosinophils # (A) 0.2 k/uL (0-0.7); Eosinophils % (A) 2 %; HCT 39.7 % (34.0-46.0); Lymphocytes # (A) 2.9 k/uL (1.0-4.8); Lymphocytes % (A) 32 %; MCH 26.9 pg (25.0-35.0); MCHC 32.8 g/dL (31.0-37.0); Mean Platelet Volume 6.6; Monocytes # (A) 0.4 k/uL (0-1.0); Monocytes % (A) 4 %; Neutrophils # (A) 5.3 k/uL (1.3-7.7); Neutrophils % (A) 59 %; Platelet Count 312 k/uL (150-450); RBC 4.83 m/uL (3.80-5.40); RDW 14.8 % (11.5-15.5)
[2020-02-27 11:03] LABS: Erythrocyte Sedimentation Rate 8 mm/hr (0-20)
[2020-02-27 17:13] LABS: African American GFR (CKD) 93.5 (60.0-200.0); Albumin 4.5 g/dL (3.80-4.90); Albumin/Globulin Ratio 2.81 (1.60-3.17); Anion Gap 9.9 mmol/L (4.00-12.00); BUN/Creat Ratio 12.5 Ratio (12.00-20.00); C Reactive Protein 0.4 mg/dL (0.0-0.8); Carbon Dioxide 28.1 mmol/L (21.6-31.8); Chol/HDL Ratio 5.14; Globulin 1.6 g/dL (1.6-3.3); LDL Cholesterol,Calculated 84.8 mg/dL (0.0-131.0); Non-African American GFR(CKD) 80.7 (60.0-200.0); Potassium 4.4 mmol/L (3.5-5.5); Total Bilirubin 0.3 mg/dL (0.3-1.2); Total Protein 6.1 g/dL (6.2-8.2); VLDL Calculation 35.2 mg/dL (5.00-40.00)
[2020-02-27 17:31] LABS: Hemoglobin A1C 8.7 % (4.0-6.0)
== END | disposition home or self-care (01) ==
LOC: LABWHC1 09:15
PROVIDERS: ATTEND Internal Medicine
DX: I10 Essential (primary) hypertension (principal); J44.9 Chronic obstructive pulmonary disease, unspecified; E78.5 Hyperlipidemia, unspecified; E11.65 Type 2 diabetes mellitus with hyperglycemia
CPT/HCPCS: 36415; 80053; 80061; 82550; 83036; 85025; 85652; 86140

== ENCOUNTER → 2020-05-26 | Outpatient (CLI) | payer MEDICARE ==
--- NOTE | 2020-05-27 13:27 | MM ---
Reason for exam: screening (asymptomatic). Last mammogram was performed 1 year and 6 months ago. History: Patient is postmenopausal and has history of other cancer at age 30. Family history of breast cancer in 2 maternal aunts and breast cancer in maternal grandmother. Physical Findings: A clinical breast exam by your physician is recommended on an annual basis and results should be correlated with mammographic findings. MG 3D Screening Mammo W/Cad Bilateral CC and MLO view(s) were taken. Prior study comparison: December 09, 2018, bilateral MG 3d screening mammo w/cad. May 13, 2015, mammogram, performed at [facility]. There are scattered fibroglandular densities. There are benign appearing round calcifications bilaterally. There is no discrete abnormality. ASSESSMENT: Benign, BI-RAD 2 RECOMMENDATION: Routine screening mammogram of both breasts in 1 year.
== END ==
LOC: RADMAMWWP 12:34
PROVIDERS: ATTEND Internal Medicine
DX: Z12.31 Encounter for screening mammogram for malignant neoplasm of breast (principal); Z78.0 Asymptomatic menopausal state; Z80.3 Family history of malignant neoplasm of breast
CPT/HCPCS: 77063; 77067

== ENCOUNTER → 2020-05-27 | Outpatient (CLI) | payer MEDICARE ==
[2020-05-28 03:32] LABS: Hemoglobin A1C 7.9 % (4.0-6.0)
== END | disposition home or self-care (01) ==
LOC: LABWHC1 10:09
PROVIDERS: ATTEND Internal Medicine
DX: E11.9 Type 2 diabetes mellitus without complications (principal)
CPT/HCPCS: 36415; 82947; 83036

== ENCOUNTER → 2020-09-22 | Outpatient (CLI) | payer MEDICARE ==
[2020-09-22 18:55] LABS: African American GFR (CKD) 92.9 (60.0-200.0); Anion Gap 7.5 mmol/L (4.00-12.00); Calcium 9.5 mg/dL (8.7-10.3); Carbon Dioxide 26.5 mmol/L (21.6-31.8); Non-African American GFR(CKD) 80.1 (60.0-200.0); Potassium 4.2 mmol/L (3.5-5.5)
[2020-09-22 20:11] LABS: Urine Creatinine 48.2 mg/dL
[2020-09-22 20:18] LABS: Hemoglobin A1C 9.5 % (4.0-6.0)
== END | disposition home or self-care (01) ==
LOC: LABWHC1 10:01
PROVIDERS: ATTEND Internal Medicine
DX: I10 Essential (primary) hypertension (principal); E11.22 Type 2 diabetes mellitus with diabetic chronic kidney disease; N18.30 Chronic kidney disease, stage 3 unspecified; E11.65 Type 2 diabetes mellitus with hyperglycemia
CPT/HCPCS: 36415; 80048; 82043; 82570; 83036; 84450; 84460

== ENCOUNTER → 2020-10-20 | Outpatient (CLI) | payer MEDICARE ==
[2020-10-21 09:36] LABS: C Reactive Protein 1.8 mg/dL (0.0-0.8); Rheumatoid Factor, Qnt <4 IU/mL (0-13)
== END | disposition home or self-care (01) ==
LOC: LABWHC1 15:33
PROVIDERS: ATTEND Psychiatry & Neurology Neurology
DX: E11.9 Type 2 diabetes mellitus without complications (principal); G62.9 Polyneuropathy, unspecified; R26.89 Other abnormalities of gait and mobility
CPT/HCPCS: 36415; 82607; 82747; 84439; 84443; 85652; 86038; 86140; 86431; 86618

== ENCOUNTER → 2020-10-28 | Outpatient (CLI) | payer MEDICARE ==
[2020-10-29 06:27] LABS: African American GFR (CKD) 109.1 (60.0-200.0); BUN/Creat Ratio 17.14 Ratio (12.00-20.00); Calcium 10.1 mg/dL (8.7-10.3); Non-African American GFR(CKD) 94.2 (60.0-200.0); Potassium 3.9 mmol/L (3.5-5.5)
== END | disposition home or self-care (01) ==
LOC: LABWHC1 11:32
PROVIDERS: ATTEND Internal Medicine
DX: E11.65 Type 2 diabetes mellitus with hyperglycemia (principal)
CPT/HCPCS: 36415; 80048; 84450; 84460

== ENCOUNTER → 2020-11-01 | Outpatient (CLI) | payer MEDICARE ==
--- NOTE | 2020-11-02 04:43 | MR ---
EXAMINATION TYPE: MR knee RT wo con DATE OF EXAM: 11/01/2020 COMPARISON: 12/12/2018 HISTORY: Rt knee pain Multiplanar multiecho imaging of the right knee without contrast. The anterior and posterior cruciate ligaments are intact. There is moderate knee joint effusion. Ther e is increased signal in the posterior horn medial meniscus on the superior surface relate to multipl e small tears. There is some thinning of the anterior horn medial meniscus. There is spurring of the femoral and tibial condyles. The lateral meniscus appears intact. The collateral ligaments are intact . There is mild narrowing of the medial joint space. There is no evidence of a fracture. I see no foc al bone destruction. The patella is intact. IMPRESSION: No evidence of ligamentous tear. Knee joint effusion unchanged. Complex tears of the superior aspect of the posterior horn medial meni scus without change. Osteoarthritis in the medial joint space with thinning of the medial meniscus. U nchanged.
== END | disposition home or self-care (01) ==
LOC: RADMRIMAIN 10:35
PROVIDERS: ATTEND Orthopaedic Surgery
DX: S83.241A Other tear of medial meniscus, current injury, right knee, initial encounter (principal); M17.11 Unilateral primary osteoarthritis, right knee; M25.461 Effusion, right knee; X58.XXXA Exposure to other specified factors, initial encounter

== ENCOUNTER → 2020-12-10 | Outpatient (CLI) | payer MEDICARE ==
[2020-12-10 15:03] LABS: Anisocytosis Slight; Basophils # (A) 0.1 k/uL (0-0.2); Basophils % (A) 1 %; Eosinophils # (A) 0.2 k/uL (0-0.7); Eosinophils % (A) 2 %; HCT 42.8 % (34.0-46.0); HGB 14.1 gm/dL (11.4-16.0); Lymphocytes # (A) 3.1 k/uL (1.0-4.8); Lymphocytes % (A) 34 %; MCH 27.8 pg (25.0-35.0); MCHC 32.9 g/dL (31.0-37.0); MCV 84.4 fL (80.0-100.0); Mean Platelet Volume 7.2; Monocytes # (A) 0.4 k/uL (0-1.0); Monocytes % (A) 5 %; Neutrophils # (A) 5.1 k/uL (1.3-7.7); Neutrophils % (A) 57 %; Platelet Count 363 k/uL (150-450); RBC 5.07 m/uL (3.80-5.40); RDW 16.1 % (11.5-15.5)
[2020-12-10 15:18] LABS: Potassium 4.1 mmol/L (3.5-5.1)
== END | disposition home or self-care (01) ==
LOC: LABPAT 14:26
PROVIDERS: ATTEND Orthopaedic Surgery
DX: Z01.812 Encounter for preprocedural laboratory examination (principal); M23.91 Unspecified internal derangement of right knee
CPT/HCPCS: 36415; 80051; 85025

== ENCOUNTER 2020-12-31 06:46 | Day surgery (SDC) | payer MEDICARE, OTHER ==
[~2020-12-31 06:46] MED LIST changes: -HYDROmorphone 0.5 MG/0.5 ML SYRINGE IVP PRN
[2020-12-31] MEDS ORDERED: LIDOCAINE 1% (10MG/ML) FOR IV START INTRADERMA ONE (07:22)
[2020-12-31 07:25] VITALS: RESP 16; TEMP 96.9
[2020-12-31] MEDS ORDERED: PROPOFOL 10 MG/ML 20 ML VIAL IV ONE (07:28)
[2020-12-31 07:29] LABS: Glucose,Whole Blood 138 mg/dL (75-99)
--- NOTE | 2020-12-31 07:40 | P.PCN ---
Date of Procedure: 12/31/20 Procedure(s) Performed: BRIEF HISTORY: Patient is a 60-year-old, pleasant, 8 female scheduled for an upper endoscopy as a part of evaluation of intermittent dysphagia for the last 1 year duration. She has these episodes once or twice a week. She is hence scheduled for an upper endoscopy with possible dilation.. PROCEDURE PERFORMED: Esophagogastroduodenoscopy with biopsy. PREOPERATIVE DIAGNOSIS: Intermittent dysphagia to solids. IV sedation per anesthesia. PROCEDURE: After informed consent was obtained, the patient was brought into the endoscopy unit. IV sedation was administered by Anesthesia under continuous monitoring. Initially the Olympus GIF-140 video endoscope was inserted into the mouth. Esophagus intubated without any difficulty. It was gradually advanced into the stomach and duodenum and carefully examined. The bulb and the second part of the duodenum appeared normal. The scope at this time was withdrawn to the stomach, adequately insufflated with air, and upon careful examination, mucosa of the antrum, body, cardia and the fundus appeared normal. The scope was then withdrawn into the esophagus. Small sliding type hiatal hernia noted. The GE junction was located at 39 cm from the incisors. The esophagus appeared normal. There were no erosions or ulcerations seen . In the proximal cervical esophagus there was a 3 mm polyp that was removed by cold biopsy. Also multiple biopsies were done from mid and distal esophagus to rule out years of age esophagitis and the patient tolerated the procedure well. IMPRESSION: 1. 3 mm proximal esophageal polyp status post biopsy. 2. Followed by some normal-appearing esophagus with no evidence of esophagitis or esophageal stricture. Status post multiple biopsies to rule out eosinophilic esophagitis. RECOMMENDATIONS: The findings of this examination were discussed with the patient as well as a family. She was advised to follow with the biopsy results. Her symptoms could be related to gastroesophageal reflux and recommended using [id number]-gap-tjvoesl H2 blockers as needed for now. If she has worsening dysphagia she was advised to follow up in office for further evaluation and esophageal manometry..
[2020-12-31 08:28] VITALS: BP 134/85; PULSE 77
== END 2020-12-31 08:36 | disposition home or self-care (01) ==
LOC: ORWHC2ENDO 06:46
PROVIDERS: ATTEND Internal Medicine Gastroenterology
DX: D13.0 Benign neoplasm of esophagus (principal); K44.9 Diaphragmatic hernia without obstruction or gangrene; K22.8 Other specified diseases of esophagus; R13.10 Dysphagia, unspecified; I10 Essential (primary) hypertension; E78.5 Hyperlipidemia, unspecified; F17.219 Nicotine dependence, cigarettes, with unspecified nicotine-induced disorders; E11.9 Type 2 diabetes mellitus without complications; M19.90 Unspecified osteoarthritis, unspecified site; K21.9 Gastro-esophageal reflux disease without esophagitis; I25.2 Old myocardial infarction; Z79.84 Long term (current) use of oral hypoglycemic drugs; Z79.899 Other long term (current) drug therapy; Z88.5 Allergy status to narcotic agent; Z88.2 Allergy status to sulfonamides
CPT/HCPCS: 88305; 43239; J2704

== ENCOUNTER 2021-01-06 08:19 | Day surgery (SDC) | payer MEDICARE ==
[2021-01-05 13:30] VITALS: BMI 30.9
--- NOTE | 2021-01-05 17:11 | HP ---
HISTORY AND PHYSICAL DATE OF SURGERY: 01/06/2021 Merced Rm is a 60-year-old patient seen with progressive right knee pain. We discussed options for treatment. She elected to proceed with arthroscopy. Consent was obtained. PAST MEDICAL HISTORY: Hyperlipidemia, hypertension, wjd-uudbcgs-jpfdspotq diabetes. PAST SURGICAL HISTORY: Cholecystectomy, hysterectomy, knee arthroscopy. MEDICATIONS: Atenolol, atorvastatin, lisinopril, metformin. ALLERGIES: VICODIN. SOCIAL HISTORY: She smokes one pack of cigarettes daily. PHYSICAL EVALUATION OF THE RIGHT KNEE: Range of motion is -1/2 to 130. Mild effusion. Tenderness medial joint line. Positive medial Azeb's. Crepitus medial compartment with range of motion. Ligaments stable. Hip rotation without pain. Distal neurovascular exam is intact. RIGHT KNEE RADIOGRAPHS: Revealed moderate osteoarthritis. MRI right knee revealed medial meniscal tear, effusion and osteoarthritis. IMPRESSION: 1. Internal derangement of right knee with medial meniscal tear. 2. Hypertension. 3. Hyperlipidemia. 4. Pvj-uxmuopy-tilhxzgkb diabetes. PLAN: Right knee arthroscopy with partial meniscectomy and debridement. MMODL / IJN: [id number] /
[~2021-01-06 08:19] MED LIST changes: +DEXAMETHASONE SOD PHOSPHATE 4 MG/ML 1 ML VIAL IV ONE; +ONDANSETRON 4 MG/2 ML VIAL IVP ONE; +fentaNYL (PF) 50 MCG/ML 2 ML AMP IV PRN
[2021-01-06 08:53] VITALS: RESP 16
[2021-01-06] MEDS ORDERED: LIDOCAINE 1% (10MG/ML) FOR IV START INTRADERMA ONE (08:53)
[2021-01-06 08:56] LABS: Glucose,Whole Blood 142 mg/dL (75-99)
[2021-01-06] MEDS ORDERED: BUPIVACAINE (PF) 0.25% 30 ML VIAL INTRAARTIC ONE (09:21)
[2021-01-06] MEDS ORDERED: MIDAZOLAM 2 MG/2 ML VIAL ONE (09:21)
[2021-01-06] MEDS ORDERED: PROPOFOL 10 MG/ML 20 ML VIAL IV ONE (09:21)
[2021-01-06] MEDS ORDERED: fentaNYL (PF) 50 MCG/ML 2 ML AMP ONE (09:21)
[2021-01-06 10:07] VITALS: TEMP 98.3
--- NOTE | 2021-01-06 10:14 | P.OP ---
Date of Procedure: 01/06/21 Preoperative Diagnosis: Internal derangement right knee Postoperative Diagnosis: 1. Tear medial meniscus right knee 2. Grade 2 chondromalacia lateral femoral condyle right knee 3. Grade 3/4 chondromalacia femoral sulcus right knee 4. Reactive synovitis medial, lateral and suprapatellar compartments right knee Procedure(s) Performed: 1. Arthroscopic partial medial meniscectomy right knee 2. Arthroscopic chondroplasty lateral femoral condyle right knee 3. Arthroscopic chondroplasty femoral sulcus right knee 4. Arthroscopic partial synovectomy medial, lateral and suprapatellar compartments right knee Anesthesia: MELISSAA, local Surgeon: Rigoberto Pacheco Estimated Blood Loss (ml): 6 Pathology: none sent Condition: stable Disposition: PACU Indications for Procedure: 60-year-old patient seen with progressive right knee pain. After options were discussed, she elected to proceed with arthroscopy. Operative Findings: See description of procedure Description of Procedure: Patient was taken to the operative suite. Patient underwent a spinal anesthetic by the department of anesthesia. Patient was given preoperative antibiotics. The right lower extremity was placed in a well-padded arthroscopic leg navarro. The right leg was prepped and draped in the normal sterile orthopedic fashion. A lateral parapatellar and suprapatellar incision was made. Trochars were inserted. Arthroscopy was initiated. Suprapatellar pouch revealed diffuse thick reactive synovitis. The patellofemoral joint appeared to articulate congruently. There were grade 2 chondromalacia changes of the patella and grade 3/4 chondromalacia changes of the femoral sulcus. There is some peripheral osteochondral tears involving the femoral sulcus.. The scope was guided into the medial gutter. No loose bodies or plica were identified. The scope was then guided into the medial compartment. A medial parapatellar incision was made. Trocar inserted followed by probe. There was a complex tear involving the posterior horn of the medial meniscus. There were grade 2 chondromalacia changes of the medial femoral condyle with no osteochondral tears present. There was thick reactive synovitis anteriorly. I performed a partial medial meniscectomy getting down to stable meniscal tissue. I performed a partial synovectomy compressing the thick reactive synovitis. Shaver was removed. The residual meniscus was probed and found to be stable. There was good decompression of the synovitis. Scope and probe were then guided into the intercondylar notch. Cruciates were identified, probed and found to be stable. The scope and probe were then guided into lateral compartment. The lateral meniscus was probed and found to be stable. There was an area of grade 2 chondromalacia weightbearing surface lateral femoral condyle with some osteochondral flap tears present. There was thick reactive synovitis anteriorly. I performed a chondroplasty of the lateral femoral condyle getting down to stable osteochondral tissue. I performed a partial synovectomy decompressing the thick reactive synovitis. Shaver was removed. There was good decompression of the synovitis. The residual osteochondral surface was stable. The scope was in guided back into the suprapatellar compartment. I introduced a motorized shaver into the suprapatellar compartment. I debrided some piecemeal fragments of meniscus I encountered. I performed a chondroplasty of the femoral sulcus getting down to stable osteochondral tissue. I performed a partial synovectomy decompressing the reactive synovitis. The shaver was removed. The residual osteochondral surface of the femoral sulcus was stable. There was good decompression of the synovitis. I now took one more look on the entire knee, no residual debris. Instruments were now removed from the joint. The joint was infiltrated with .25% Marcaine. Steri-Strips were applied to the portal sites. Sterile dressings were applied. The patient was placed into a CHIQUITA hose. No tourniquet was utilized. The patient was awakened, transferred to a bed and taken to recovery stable satisfactory condition.
[2021-01-06] MEDS ORDERED: LACTATED RINGERS 1,000 ML IV ONE (11:03)
[2021-01-06 11:47] VITALS: BP 125/61; PULSE 69
== END 2021-01-06 11:57 | disposition home or self-care (01) ==
LOC: OR 08:19
PROVIDERS: ATTEND Orthopaedic Surgery
DX: M23.203 Derangement of unspecified medial meniscus due to old tear or injury, right knee (principal); M22.41 Chondromalacia patellae, right knee; M65.861 Other synovitis and tenosynovitis, right lower leg; I10 Essential (primary) hypertension; E78.5 Hyperlipidemia, unspecified; E11.42 Type 2 diabetes mellitus with diabetic polyneuropathy; F17.210 Nicotine dependence, cigarettes, uncomplicated; Z90.49 Acquired absence of other specified parts of digestive tract; Z90.710 Acquired absence of both cervix and uterus; Z98.890 Other specified postprocedural states; Z79.84 Long term (current) use of oral hypoglycemic drugs; Z79.899 Other long term (current) drug therapy; Z88.5 Allergy status to narcotic agent; Z88.2 Allergy status to sulfonamides
CPT/HCPCS: 29881; J2250; J1100; J0690; J2405; J3010; J2704

== ENCOUNTER → 2021-03-07 | Outpatient (CLI) | payer MEDICARE, OTHER ==
[2021-03-07 15:10] LABS: Creatinine,Urine Random 61.2 mg/dL; Protein/Creatinine Ratio,Urine 0.18
[2021-03-07 16:58] LABS: Protein, Total 6.3 g/dL (6.2-8.2)
[2021-03-07 17:13] LABS: African American GFR (CKD) 109.2 (60.0-200.0); Anion Gap 14.1 mmol/L (10.00-18.00); BUN/Creat Ratio 24.43 Ratio (12.00-20.00); Blood Urea Nitrogen 17.1 mg/dL (9.0-27.0); Calcium 9.6 mg/dL (8.7-10.3); Carbon Dioxide 23.1 mmol/L (20.0-27.5); Non-African American GFR(CKD) 94.2 (60.0-200.0); Potassium 4.2 mmol/L (3.5-5.5); T4, Free (Free Thyroxine) 1.37 ng/dL (0.800-1.800)
[2021-03-08 02:28] LABS: Microalbumin Creatinine Ratio <30 mg/g Creat (0-30); Urine Creatinine 55.8 mg/dL (28.0-217.0)
[2021-03-08 14:31] LABS: Albumin 3.92 g/dL (3.80-4.90); Gamma Globulin 0.5 g/dL (0.70-1.50)
== END | disposition home or self-care (01) ==
LOC: LABWHC1 09:00
PROVIDERS: ATTEND Internal Medicine
DX: I10 Essential (primary) hypertension (principal); E87.8 Other disorders of electrolyte and fluid balance, not elsewhere classified; E11.65 Type 2 diabetes mellitus with hyperglycemia; R80.9 Proteinuria, unspecified
CPT/HCPCS: 36415; 80048; 82043; 82570; 82607; 83036; 84156; 84165; 84439; 84443; 84450; 84460

== ENCOUNTER → 2021-07-30 | Outpatient (CLI) | payer MEDICARE ==
[2021-07-30 16:16] LABS: African American GFR (CKD) 92.2 (60.0-200.0); Anion Gap 12.9 mmol/L (10.00-18.00); BUN/Creat Ratio 18.88 Ratio (12.00-20.00); Blood Urea Nitrogen 15.1 mg/dL (9.0-27.0); Calcium 9.8 mg/dL (8.7-10.3); Carbon Dioxide 26.1 mmol/L (20.0-27.5); Magnesium 2.2 mg/dL (1.5-2.4); Non-African American GFR(CKD) 79.6 (60.0-200.0); Potassium 4.2 mmol/L (3.5-5.5)
[2021-07-30 18:33] LABS: Urine Creatinine 54.3 mg/dL (28.0-217.0)
[2021-07-30 18:42] LABS: Microalbumin Creatinine Ratio <30 mg/g Creat (0-30)
== END | disposition home or self-care (01) ==
LOC: LABWHC1 07-29 09:54
PROVIDERS: ATTEND Internal Medicine
DX: I10 Essential (primary) hypertension (principal); E11.65 Type 2 diabetes mellitus with hyperglycemia
CPT/HCPCS: 36415; 80048; 82043; 82570; 83036; 83735; 85652

== ENCOUNTER → 2021-08-04 | Outpatient (CLI) | payer MEDICARE ==
--- NOTE | 2021-08-04 20:09 | XR ---
EXAMINATION TYPE: XR lumbosacral spine 5 views DATE OF EXAM: 08/04/2021 Comparison: 09/11/2017 Clinical History: 61-year-old female M54.50 Low Back Pain Findings: Cholecystectomy clips. Rightward truncal shift may be secondary to positioning or muscle spasm. 5 lumbar type vertebral bodi es. Hypertrophic facet arthropathy mid to lower lumbar spine. Mild multilevel degenerative disc disea se, more moderate L4-L5 and L5-S1. There is grade 1 anterolisthesis at L4-L5 redemonstrated. Impression: 1. Progressive mild multilevel degenerative disc disease, more moderate at L4-L5 and L5-S1. 2. Hypertrophic facet arthropathy mid to lower lumbar spine. Similar degenerative grade 1 anterolisth esis L4-L5.
== END | disposition home or self-care (01) ==
LOC: RADXRMAIN 13:21
PROVIDERS: ATTEND Internal Medicine
DX: M51.36 Other intervertebral disc degeneration, lumbar region (principal)
CPT/HCPCS: 72110

== ENCOUNTER → 2021-10-04 | Outpatient (CLI) | payer MEDICARE ==
[2021-10-04 13:47] LABS: African American GFR (CKD) >90 (>60 ml/min/1.73 sqM); Blood Urea Nitrogen 11 mg/dL (7-17); Non-African American GFR(CKD) >90 (>60 ml/min/1.73 sqM)
--- NOTE | 2021-10-04 14:49 | CT ---
EXAMINATION TYPE: CT adrenal glands wo/w con CT DLP: 1252.3 mGycm, Automated exposure control for dose reduction was used. DATE OF EXAM: 10/04/2021 2:28 PM COMPARISON: CT abdomen pelvis 12/30/2015 CLINICAL INDICATION:Female, 61 years old with history of L adrenal nodule; Left adrenal nodule TECHNIQUE: Standard CT of the abdomen without andfollowing the administration of 100 cc of Isovue 3 00 IV contrast material. Coronal and sagittal reformats were performed. FINDINGS: LOWER CHEST: Unremarkable ABDOMEN LIVER: Unremarkable GALLBLADDER AND BILE DUCTS: The gallbladder is surgically absent. PANCREAS: Unremarkable. SPLEEN: Unremarkable. ADRENAL GLANDS: Noncontrast imaging demonstrating 22 Hounsfield units, left adrenal nodule now measur es 17 mm, previously 13 mm. This lesion demonstrates -22 Hounsfield units noncontrast, 35, arterial p hase and -12 Hounsfield units on delayed phase imaging. KIDNEYS AND URETERS: No evidence of hydronephrosis or renal calculus. The ureters are unremarkable. STOMACH AND BOWEL: Scattered clonic diverticula are present. There is a second portion duodenal diver ticulum present. No evidence of bowel obstruction. PERITONEUM: No evidence of pneumoperitoneum or free fluid. VASCULATURE: No evidence of aortic aneurysm. MUSCULOSKELETAL: No acute osseous abnormalities. Disc degeneration changes most pronounced at L4-L5 w ith grade 1 anterolisthesis without evidence of intraventricular defects. There is moderate spinal ca nal stenosis. LYMPH NODES: No gross evidence for lymphadenopathy. SOFT TISSUE/ABDOMINAL WALL: Small fat-containing umbilical hernia. IMPRESSION: 1. Left adrenal benign lipid rich adenoma which is mildly increased in size from 2016 now measuring 17 mm, previously 13 mm. 2. Duodenal diverticulum of the second portion. 3. Colonic diverticulosis. 4. Moderate L4-L5 spinal canal stenosis secondary to grade 1 anterolisthesis with disc uncovering.
== END | disposition home or self-care (01) ==
LOC: RADCTMAIN 13:12
PROVIDERS: ATTEND Orthopaedic Surgery Orthopaedic Surgery of the Spine
DX: M43.16 Spondylolisthesis, lumbar region (principal); M51.36 Other intervertebral disc degeneration, lumbar region; R93.89 Abnormal findings on diagnostic imaging of other specified body structures; E27.9 Disorder of adrenal gland, unspecified; R53.1 Weakness
CPT/HCPCS: 82565; 84520; 36415; 74170; Q9967

== ENCOUNTER → 2021-11-22 | Outpatient (CLI) | payer MEDICARE ==
--- NOTE | 2021-11-22 15:53 | BD ---
EXAMINATION TYPE: Axial Bone Density DATE OF EXAM: 11/22/2021 COMPARISON: 07/21/2013 CLINICAL HISTORY: 61 years year old Female. ICD-10 CODE: Z78.0 MENOPAUSAL STATE Height: 63.7 IN Weight: 183 LBS FRAX RISK QUESTIONS: History of Fracture in Adulthood: LT ANKLE AGE 35; RT ANKLE AGE 35; LT FOOT AGE 61; RT HAND AGE 51; L T HAND AGE 61; RT TIB FIB AGE 43; LT WRIST AGE 61 Current Tobacco Use: YES RISK FACTORS HISTORY OF: Active: YES Diet low in dairy products/other sources of calcium: YES Postmenopausal woman: AGE 46 Frequent falls: PTS KNEE GIVES OUT MEDICATIONS: Additional Medications: CALCIUM, VIT D, DIABETIC MEDS, HIGH BLOOD PRESSURE MEDS, CHOLESTEROL MEDS, FI BROMYALGIA MEDS EXAM MEASUREMENTS: Bone mineral densitometry was performed using the [employer] System. Bone mineral density as measured about the Lumbar spine is: ----- L1-L4(G/cm2): 1.320 T Score Values are as follows: ----- L1: 0.0 ----- L2: 1.1 ----- L3: 2.4 ----- L4: 1.0 ----- L1-L4: 1.2 Bone mineral density has: Increased 0.4% since study of: 07/21/2013 Bone mineral density about the R hip (g/cm2): 0.870 Bone mineral density about the L hip (g/cm2): 0.881 T Score values are as follows: -----R Neck: -1.2 -----L Neck: -1.1 -----R Total: -0.9 -----L Total: -0.6 Bone mineral density has: Decreased -14.7% since study of: 07/21/2013 FRAX%s: The graph provided illustrates a 12.5 chance for a major osteoporotic fx and a 1.5 chance for the hips probability for fx in 10 years time. IMPRESSION: Normal (Values between +1 and -1 indicate normal bone mass). Consider repeating this study in 5 year s or sooner if there is some new clinical indication. NOTE: T-SCORE=SD OF THE YOUNG ADULT MEAN.
== END | disposition home or self-care (01) ==
LOC: RADBDWWP 14:54
PROVIDERS: ATTEND Internal Medicine
DX: Z78.0 Asymptomatic menopausal state (principal)
CPT/HCPCS: 77080

== ENCOUNTER → 2021-12-21 | Outpatient (CLI) | payer MEDICARE ==
[2021-12-21 14:45] LABS: Basophils # (A) 0.04 X 10*3/uL (0.00-0.10); Basophils % (A) 0.4 %; Eosinophils # (A) 0.24 X 10*3/uL (0.04-0.35); Eosinophils % (A) 2.5 %; HCT 43.9 % (37.2-46.3); Immature Grans, Automated 0.2 %; Lymphocytes # (A) 2.49 X 10*3/uL (0.90-5.00); Lymphocytes % (A) 26.2 %; MCH 27.3 pg (27.0-32.0); MCHC 31.9 g/dL (32.0-37.0); MCV 85.7 fL (80.0-97.0); Mean Platelet Volume 9.5 fL (9.5-12.2); Monocytes # (A) 0.52 X 10*3/uL (0.20-1.00); Monocytes % (A) 5.5 %; NRBC Per 100 WBC 0 /100 WBCS (0.0-0.0); Neutrophils # (A) 6.21 X 10*3/uL (1.80-7.70); Neutrophils % (A) 65.2 %; Platelet Count 382 X 10*3/uL (140-440); RBC 5.12 X 10*6/uL (4.10-5.20); RDW 14.5 % (11.5-14.5); WBC 9.52 X 10*3/uL (4.50-10.00)
[2021-12-21 14:54] LABS: African American GFR (CKD) 97.7 (60.0-200.0); Anion Gap 9.3 mmol/L (10.00-18.00); BUN/Creat Ratio 11.48 Ratio (12.00-20.00); Blood Urea Nitrogen 8.8 mg/dL (9.0-27.0); Calcium 9.3 mg/dL (8.7-10.3); Carbon Dioxide 25.8 mmol/L (20.0-27.5); Non-African American GFR(CKD) 84.3 (60.0-200.0); Potassium 4.1 mmol/L (3.5-5.5)
[2021-12-21 15:09] LABS: INR 0.92 (0.90-1.11); Prothrombin Time 10.2 sec (9.9-11.9)
== END | disposition home or self-care (01) ==
LOC: LABPAT 09:48
PROVIDERS: ATTEND Orthopaedic Surgery
DX: Z01.812 Encounter for preprocedural laboratory examination (principal); Z22.322 Carrier or suspected carrier of Methicillin resistant Staphylococcus aureus; M17.11 Unilateral primary osteoarthritis, right knee
CPT/HCPCS: 36415; 80048; 85025; 85610; 87070

== ENCOUNTER 2022-01-02 12:51 | Day surgery (SDC) | payer MEDICARE, OTHER ==
--- NOTE | 2022-01-01 23:11 | HP ---
HISTORY AND PHYSICAL DATE OF SURGERY: 01/02/2022. HISTORY OF PRESENT ILLNESS: Merced Rm is a 61-year-old patient seen with progressive right knee pain consistent with symptomatic osteoarthritis. After treatment options were discussed with her, she elected to proceed with right total knee arthroplasty. Consent was obtained. Medical clearance was provided by Dr. Juarez. PAST MEDICAL HISTORY: Hypertension, hyperlipidemia, agb-iqffuxu-dsflqqsvy diabetes. PAST SURGICAL HISTORY: Cholecystectomy, hysterectomy, right knee arthroscopy. DAILY MEDICATIONS: 1. Atorvastatin. 2. Fluoxetine. 3. Amlodipine. 4. Lisinopril. 5. Metformin. 6. Naprosyn. ALLERGIES: Vicodin. SOCIAL HISTORY: She denies tobacco use. PHYSICAL EVALUATION OF THE RIGHT KNEE: Range of motion is 0 to 120. Mild effusion. Tenderness, medial joint line. Crepitus, medial patellofemoral compartments with range of motion. Pain with patellofemoral compression. Ligaments stable. Distal neurovascular exam is intact. RADIOGRAPHS: Right knee radiographs revealed severe osteoarthritic changes. IMPRESSION: 1. Right knee osteoarthritis. 2. Hypertension. 3. Hyperlipidemia. 4. Ajp-fqepngg-lmqbmplvl diabetes. PLAN: Right total knee arthroplasty. MMODL / IJN: [id number] /
[~2022-01-02 12:51] MED LIST changes: +ACETAMINOPHEN TAB 500 MG TAB PO PRN; +HYDROmorphone 0.5 MG/0.5 ML SYRINGE IVP PRN; +LIDOCAINE 1% (10MG/ML) FOR IV START INTRADERMA PRN; +MELOXICAM 7.5 MG TAB PO PRN; +METOCLOPRAMIDE 5 MG/ML 2 ML VIAL IVP PRN; +TRANEXAMIC ACID IN NACL,ISO-OS 1,000 MG in SALINE 1 100ML.BAG IVPB PRN; -fentaNYL (PF) 50 MCG/ML 2 ML AMP IV PRN
[2022-01-02 13:42] LABS: Glucose,Whole Blood 163 mg/dL (70-110)
[2022-01-02] MEDS ORDERED: LACTATED RINGERS 1,000 ML IV ONE ×2 (13:45→15:19)
[2022-01-02] MEDS ORDERED: MIDAZOLAM 2 MG/2 ML VIAL IVP ONE (13:52)
[2022-01-02] MEDS ORDERED: ceFAZolin 1,000 MG in SODIUM CHLORIDE 0.9% 1,000 ML IRRIGATION ONE (15:01)
[2022-01-02] MEDS ORDERED: HYDROmorphone 1 MG/ML 1 ML SYRINGE IVP PRN (16:17)
[2022-01-02] MEDS ORDERED: ONDANSETRON 4 MG/2 ML VIAL IVP PRN (16:17)
[2022-01-02] MEDS ORDERED: NALOXONE 0.4 MG/ML 1 ML VIAL IV PRN (16:17)
[2022-01-02] MEDS ORDERED: traMADol 50 MG TAB PO PRN (16:17)
[2022-01-02] MEDS ORDERED: Acetaminophen-Codeine 300-30mg TAB PO PRN (16:17)
[2022-01-02] MEDS ORDERED: HYDROmorphone 0.5 MG/0.5 ML SYRINGE IVP PRN ×2 (16:17)
--- NOTE | 2022-01-02 16:17 | P.OP ---
Date of Procedure: 01/02/22 Preoperative Diagnosis: Right knee osteoarthritis Postoperative Diagnosis: Right knee osteoarthritis Procedure(s) Performed: Right total knee arthroplasty Implants: 1. Depuy attune size 5 right cruciate-retaining cemented femur 2. Depuy attune size 4 fixed bearing cemented tibial baseplate 3. Depuy attune size 5 fixed bearing cruciate retaining 6 mm polyethylene tibial insert 4. Depuy attune 35 mm all polyethylene cemented patella Anesthesia: GETA, regional (Adductor canal catheter, Ipack block) Surgeon: Rigoberto Pacheco Composite Science Teacher #1: Polo Sharma Estimated Blood Loss (ml): 45 Pathology: other (Bone) Condition: stable Disposition: PACU Indications for Procedure: 61-year-old patient was seen with symptomatic right knee osteoarthritis. After having treatment options discussed, she elected to proceed with right total knee arthroplasty. Operative Findings: See description of procedure Description of Procedure: Patient was taken to the operative suite after having an adductor canal catheter placed by the department of anesthesia. Patient underwent a general anesthetic by the department of anesthesia. Patient was given preoperative IV intake antibiotics and TXA. A well-padded tourniquet was placed about the right lower extremity. The lower extremity was then prepped and draped in the normal sterile orthopedic fashion. The extremity was elevated, a tourniquet was insufflated to 300. A standard anterior incision was made sharply through skin. Dissection was taken down through the subcutaneous soft tissues down to the extensor mechanism. A medial arthrotomy was performed, patella was everted and knee was flexed. There was advanced osteoarthritis noted. I introduced my distal intramedullary femoral drill. I then introduced the distal femoral cutting jig. Juan Manuel JOHNSON secured the cutting jig with 2 pins. I held retractors in position while Juan Manuel JOHNSON performed the distal femoral resection through the guide area we now removed her distal femoral cutting guide. We now placed our 4-in-1 femoral cutting block and positioned and it was secured with 2 pins by Juan Manuel JOHNSON while I held the block in position. The distal femoral finishing was now completed. A proximal tibial cutting guide was positioned. I held the guide in the appropriate position with both hands well Juan Manuel JOHNSON inserted stabilizing pins into the guide. Proximal tibial cut was made. We now placed a trial femoral component into position, along with an appropriate size tibial tray and insert. We now took the knee through range of motion and had full extension good flexion and good overall soft tissue balance noted. The patella was everted and stabilized with 2 towel clips held by Juan Manuel JOHNSON while I performed a flush with patellar quad tendon utilizing a fresh sawblade. We templated the patella, appropriate drill holes were made. An appropriate trial patella was positioned, knee was taken through full range of motion with the patella tracking very nicely. The trial patella was removed. Drill holes were made through the femoral component. All trial components were removed after marking off the appropriate rotation of the tibia. Retractors were now positioned along the proximal tibia. An appropriate keel punch was made with the appropriate size tibial guide by myself on Juan Manuel JOHNSON assisted by holding retractors. At this point appropriate size implants were chosen and opened. The joint was irrigated copiously with pulse lavage mechanical irrigation. The wound was irrigated with pulse lavage mechanical irrigation. We mixed antibiotic methylmethacrylate. We placed the knee into flexion. We placed multiple retractors assisted by Juan Manuel JOHNSON to expose the proximal tibia. Once the methyl methacrylate was ready, the tibial component was cemented into place removing any excess methylmethacrylate form by both myself and Juan Manuel JOHNSON. The femoral component was cemented into place removing the removing any excess methylmethacrylate performed by both myself and Juan Manuel JOHNSON. We then inserted the appropriate size polyethylene tibial insert. We made sure that it was locked into position. We took the knee into full extension, and then back in a flexion making sure we had removed any excess methylmethacrylate. The patellar component was then cemented down and secured with clamp. Excess methylmethacrylate removed. We kept the knee in full extension, patellar clamp in position until methylmethacrylate had hardened. Once it had hardened the patellar clamp was removed. The knee was taken through full range of motion. The patella tracked nicely. There was good soft tissue balancing. The tourniquet was now released. Additional hemostasis was achieved via electrocautery. A second gram of TXA was given. The wound again was irrigated with pulse lavage mechanical irrigation. The superficial soft tissues were infiltrated local analgesic. The extensor mechanism was repaired with Et hibond suture. We checked the repair with range of motion and it was stable. The subcutaneous soft tissues were repaired with Vicryl in layers. The skin was approximated with pernio/Dermabond. Sterile dressings were applied followed by loose web roll and Jeremy bandage. The patient was transferred to a bed, and taken to recovery in stable and satisfactory condition. Juan Manuel JOHNSON assisted with this complex procedure.
[2022-01-02] MEDS ORDERED: fentaNYL (PF) 50 MCG/ML 2 ML AMP IVP ONE ×2 (16:41→17:02)
[2022-01-02] MEDS ORDERED: ROPIVACAINE 1,100 MG, SODIUM CHLORIDE 0.9% 500 ML 330 ML, EMPTY PAIN BALL 1 EACH MISCELLANE PRN ×2 (17:13)
[2022-01-02] MEDS ORDERED: diphenhydrAMINE 50 MG/ML 1 ML VIAL IVP ONE (17:20)
--- NOTE | 2022-01-02 17:56 | XR ---
EXAMINATION TYPE: XR knee limited RT DATE OF EXAM: 01/02/2022 COMPARISON: NONE HISTORY: Postop knee surgery TECHNIQUE: 2 views FINDINGS: There is right knee prosthesis. Components are in anatomic position. IMPRESSION: No complicating process seen.
[2022-01-02 19:58] LABS: Glucose,Whole Blood 264 mg/dL (70-110)
--- NOTE | 2022-01-02 20:05 | P.CON ---
Consult Note - . Consult date: 01/02/22 (Postop right total knee arthroplasty) Assessment/Plan:: This dictation on the consult for medical management Attending physician Dr. Pacheco orthopedic surgeon Date of surgery 01/02/2022 Right total knee arthroplasty Diagnoses advanced osteoarthritis of the right knee. Subsequently requested consult to see the patient today postoperative for medical management. History of Diabetes mellitus type 2 Right knee pain associated with advanced degenerative arthritis and is status post right total knee arthroplasty #3 essential tremors seen and treated by Dr. Nuñez neurologist. #4 hypertension was hypertensive heart disease #5 depression #6 neuropathy associated with diabetes mellitus #7 history of glaucoma seen by central supply assistant #8 insomnia. Home medication: Hold medication: Propranolol ER 60 mg twice a day Pioglitazone 15 mg every morning Metoprolol succinate 25 mg daily Melatonin 5 mg daily Tradjenta/linagliptin 5 mg once daily [place]-3 fatty acid 1 g daily Lisinopril 20 mg twice a day by mouth Hydralazine HCL 25 mg twice a day Latanoprost eyedrops 0.005% 1 drop each eye at bedtime. Norvasc 5 mg every at bedtime daily Atorvastatin 40 mg daily at bedtime Farxiga by mouth on hold Vitamin D3 1000 unit once daily Duloxetine 20 mg twice a day Gabapentin 300 mg 3 times a day Amaryl 2 mg twice a day Ozempic 0.25 mg injection/0.2 mL on hold Janumet 50/500 twice a day on hold Vitamin B complex once daily. Mrs. Rm, apparently 61 years old white female underwent right total knee arthroplasty today on 01/02/[address] Rigoberto Pacheco orthopedic surgeon. Patient admitted electively for the surgery Patient was stable medically prior to the surgery with the multiple medical problem as mentioned above in the problem history. Patient currently seen postoperative with no complaint of nausea vomiting or diarrhea, no headache or blurred vision, she has pain in the right knee with the right total knee arthroplasty expected and treated by the orthopedic surgeon and his orthopedic team. On review of system: Patient is conscious alert oriented 3 Pain level with the pain medication in 3-4 very well controlled. Patient also on anticoagulant with Lovenox per orthopedic surgeon. No blurred vision no headache Normal breathing with no cough or expectoration No palpitation or chest pain No GI symptoms of nausea vomiting diarrhea. No symptoms as dysuria. Musculoskeletal associated with the right total knee arthroplasty. Patient seen and examined today [id number] Temperature 97.9 have febrile temporal her heart rate is 70 bpm, respiratory rate 16/m nonlabored, blood pressure 130/74 supine, oxygen saturation 96% on room air. X-ray of the knee postoperative indicating right knee prosthesis component R in anatomic position and no complicating processes seen. On exam:: HEENT: Head normocephalic and atraumatic, pupil equal reactive, natural teeth, no fascial acid [place]ck supple no JVD no thyromegaly no lymphadenopathy trachea midline Chest: Clear to auscultation and percussion no wheezes no rhonchi's. Heart regular sinus rhythm no palpitation and no chest pain Abdomen soft positive bowel sounds no tenderness in the four-quadrant. Extremities: Right leg status post right total knee arthroplasty dorsalis pedis and posterior tibial pulses intact and no edema and rapid in the Jeremy bandage. Left lower extremities has been wrapped in past thrombotic stocking with the positive dorsalis pedis and posterior tibial pulses no edema. Neurologically: Stable general condition. Psychologically stable as well. Assessment and plan: Will resume medications from home with adjustment of some medication and we will be rechecking the lab in a.m. CBC with differential and BMP and also monitoring the blood pressure and antidepressant medication. Pain medication will be given by the orthopedic surgeon with the adjustment a ccording to her pain also the already started her on novel anticoagulant and they will be monitoring it
[2022-01-02] MEDS ORDERED: amLODIPine 5 MG TAB PO SCH (21:00)
[2022-01-02] MEDS ORDERED: MELATONIN 5 MG TABLET PO SCH (21:00)
[2022-01-02] MEDS ORDERED: ATORVASTATIN 40 MG TAB PO SCH (21:00)
[2022-01-02] MEDS ORDERED: LATANOPROST 0.005% OPHTH DROPS 2.5 ML BTL BOTH EYES SCH (21:00)
[2022-01-02] MEDS: INSULIN ASPART (NovoLOG) 100 UNIT/ML VIAL SQ SCH (21:24)
[2022-01-02] MEDS: DULoxetine HCL 20 MG CAPSULE.DR PO SCH (21:25)
[2022-01-02] MEDS: hydrALAZINE HCL 25 MG TAB PO SCH (21:25)
[2022-01-02] MEDS: CHOLECALCIFEROL 25 MCG (1000 IU) TABLET PO SCH (21:25)
[2022-01-02] MEDS: lisinopriL 20 MG TAB PO SCH (21:25)
[2022-01-02] MEDS: NON FORMULARY DRUG (Omega-3 Fatty Acids/Fish Oil [Fish Oil 1,000 Mg Softgel] 1 EACH Capsul PO SCH (21:30)
[2022-01-02] MEDS: GABAPENTIN 300 MG CAP PO SCH (21:30)
[2022-01-02] MEDS: GLIMEPIRIDE 2 MG TAB PO SCH (21:30)
[2022-01-02] MEDS: LACTATED RINGERS 1,000 ML IV SCH (21:32)
[2022-01-02] MEDS ORDERED: GABAPENTIN 300 MG CAP PO SCH (22:00)
--- NOTE | 2022-01-02 22:08 | P.ANPRN ---
Procedure Note - Anesthesia - Nerve Block Performed Right Adductor Canal Infusion Time Out Performed: Yes (1350) Date of Procedure: 01/02/22 Procedure Start Time: 13:51 Procedure Stop Time: 14:02 Location of Patient: PreOp Indication: Acute Post-Operative Pain, Requested by Surgeon Sedation Type: Sedate with meaningful contact maintained Preparation: Sterile Prep, Sterile Dressing Position: Supine Catheter: Indwelling Needle Types: On-Q Needle Gauge: 18 Ultrasound used to visualize needle placement: Yes Ultrasound used to observe medication spread: Yes Injectate: 0.5% Ropivacaine (see comment for volume) Blood Aspirated: No Pain Paresthesia on Injection Noted: No Resistance on Injection: Normal Image Stored and Saved: Yes Events: Other (see comment) (20 mL of block solution containing 10 mL of 0.5% ropivacaine mixed with 10 ML of preservative-free 0.9% NaCl) Right iPack Single Time Out Performed: Yes (1350) Date of Procedure: 01/02/22 Procedure Start Time: 14:10 Procedure Stop Time: 14:10 Location of Patient: PreOp Indication: Acute Post-Operative Pain, Requested by Surgeon Sedation Type: Sedate with meaningful contact maintained Preparation: Sterile Prep Position: Supine Catheter: None Needle Types: Pajunk Needle Gauge: 21 Ultrasound used to visualize needle placement: Yes Ultrasound used to observe medication spread: Yes Injectate: 0.5% Ropivacaine (see comment for volume) Blood Aspirated: No Pain Paresthesia on Injection Noted: No Resistance on Injection: Normal Image Stored and Saved: Yes Events: Uneventful and Well Tolerated (21 mL of block solution containing 10 mL of 0.5% ropivacaine mixed with 10 ML of preservative-free 0.9% normal saline, and 4 mg of dexamethasone)
[2022-01-03] MEDS: LACTATED RINGERS 1,000 ML IV SCH (06:19)
[2022-01-03] MEDS: Acetaminophen-Codeine 300-30mg TAB PO PRN ×2 (06:24→10:12)
[2022-01-03 07:06] LABS: Glucose,Whole Blood 172 mg/dL (70-110)
[2022-01-03 07:28] VITALS: BP 140/84; PULSE 84; RESP 18; TEMP 98.3
--- NOTE | 2022-01-03 07:59 | P.PN ---
Progress Note - Text Progress Note Date: 01/03/22 (Post operative right total knee arthroplasty done on 01/02/2022 by ) Progress note date of the visit 10 02/02/2022 Patient seen [id number] and discussed will be seeing her post discharged in 2 weeks after her right total knee healed and she will be seen and followed by the advanced orthopedic surgeon. Vital sign stable, temperature 98.3 F oral, heart rate 83/m, respiratory rate 18 nonlabored, blood pressure 140/84 and prior to that 135/82 stable mean blood pressure and oxygen saturation 96 on the room air Patient has only complained the pain that she has to take a medication. Orthopedic which is expected. Review of system was negative On examination: Conscious alert oriented 3 sitting in the geriatric chair with elevated right the and she had a thrombotic stocking on the left lower extremities and she is on anticoagulant. Orthopedic for the right knee surgery. HEENT was negative normal oropharynx Chest is clear to auscultation and percussion Heart regular sinus rhythm and the blood pressure is controlled Abdomen is soft positive bowel sounds no tenderness no nausea no vomiting Extremities status post right total knee arthroplasty pulses intact on the dorsalis pedis and posterior tibial on the right lower extremities and no calf tenderness Left lower extremities after walking stocking positive pulses dorsalis pedis and posterior tibial. No edema. Neurologically stable Psychologically stable. Assessment and plan Patient stable general condition. Patient in for me that she will be going home today. I did the med rec from medical point of view and reconsild and reviewed, patient will be continuing her home medication as before. Pain medication and other medication as designed by the orthopedic has anticoagulant. Orthopedic surgeon and orthopedic team. I'll be seeing her after she healed and continue her home medication probably in 2 weeks when she is able to calm and see me in the office thank you
[2022-01-03] MEDS: lisinopriL 20 MG TAB PO SCH (08:20)
[2022-01-03] MEDS: hydrALAZINE HCL 25 MG TAB PO SCH (08:20)
[2022-01-03] MEDS: CHOLECALCIFEROL 25 MCG (1000 IU) TABLET PO SCH (08:20)
[2022-01-03] MEDS: GLIMEPIRIDE 2 MG TAB PO SCH (08:20)
[2022-01-03] MEDS: INSULIN ASPART (NovoLOG) 100 UNIT/ML VIAL SQ SCH (08:20)
[2022-01-03] MEDS: GABAPENTIN 300 MG CAP PO SCH (08:20)
[2022-01-03] MEDS: DULoxetine HCL 20 MG CAPSULE.DR PO SCH (08:20)
[2022-01-03] MEDS: NON FORMULARY DRUG (Omega-3 Fatty Acids/Fish Oil [Fish Oil 1,000 Mg Softgel] 1 EACH Capsul PO SCH (08:23)
[2022-01-03 08:46] LABS: Basophils # (A) 0.02 X 10*3/uL (0.00-0.10); Basophils % (A) 0.2 %; Eosinophils # (A) 0 X 10*3/uL (0.04-0.35); Eosinophils % (A) 0 %; HCT 39.1 % (37.2-46.3); HGB 12.8 g/dL (12.0-15.0); Immature Grans, Automated 0.3 %; Lymphocytes # (A) 1.73 X 10*3/uL (0.90-5.00); Lymphocytes % (A) 13.3 %; MCH 27.8 pg (27.0-32.0); MCHC 32.7 g/dL (32.0-37.0); Mean Platelet Volume 9.8 fL (9.5-12.2); Monocytes # (A) 0.65 X 10*3/uL (0.20-1.00); NRBC Per 100 WBC 0 /100 WBCS (0.0-0.0); Neutrophils # (A) 10.55 X 10*3/uL (1.80-7.70); Neutrophils % (A) 81.2 %; Platelet Count 315 X 10*3/uL (140-440); RDW 14.5 % (11.5-14.5); WBC 12.99 X 10*3/uL (4.50-10.00)
[2022-01-03 09:00] LABS: Anion Gap 5.4 mmol/L (10.00-18.00); BUN/Creat Ratio 14.67 Ratio (12.00-20.00); Blood Urea Nitrogen 8.8 mg/dL (9.0-27.0); Calcium 9.1 mg/dL (8.7-10.3); Carbon Dioxide 29.6 mmol/L (20.0-27.5); Non-African American GFR(CKD) 98.4 (60.0-200.0); Potassium 4.1 mmol/L (3.5-5.5)
[2022-01-03] MEDS ORDERED: METOPROLOL SUCCINATE (ER) 25 MG TAB.ER.24H PO SCH (09:00)
[2022-01-03] MEDS ORDERED: PIOGLITAZONE 15 MG TAB PO SCH (09:00)
[2022-01-03] MEDS ORDERED: LINAGLIPTIN 5 MG TABLET PO SCH (09:00)
[2022-01-03] MEDS ORDERED: NON FORMULARY DRUG (Vitamin B Complex [Vitamin B Complex] 1 EACH Capsule) PO SCH (09:00)
[2022-01-03] MEDS ORDERED: ENOXAPARIN 30 MG/0.3 ML SYRINGE SQ SCH (09:00)
--- NOTE | 2022-01-03 09:47 | P.PN ---
Progress Note - Text Progress Note Date: 01/03/22 patient was seen and evaluated at bedside. Status post postoperative day 1 for right-sided total knee arthroplasty patient had adductor canal catheter for postop pain control. Patient rated pain at rest 4-5 out of 10 in severity. Patient describes pain is aching, throbbing type on the sides of the knee and back of the knee. Patient started walking with support. With activity patient pain levels are 6 out of 10 in severity. With the help of oral pain medications pain levels are tolerable. Patient denied any weakness/ numbness in lower extremities. patient denied any fever, pain over the catheter site. Physical exam: Patient vital signs stable Patient is alert awake oriented 3 responding to all questions appropriately Examination of the catheter site showed dressing intact, no leaking fluid around the catheter, no redness, no tenderness over the catheter insertion area. plan: status post postoperative day 1 for right-sided total knee arthroplasty with adductor canal catheter for pain control. Patient was discussed to continue the medication at the rate of 8 mL per hour until the pump is completely empty and instructed the patient how to discontinue the catheter.
--- NOTE | 2022-01-03 10:36 | P.PN ---
Subjective Progress Note Date: 01/03/22 Principal diagnosis: Right knee osteoarthritis Patient was seen at bedside this morning resting, placing up at the edge of bed. Patient says she did work with physical therapy earlier and said she was able to walk out into the ramírez and up-and-down a couple steps. Patient says she is complaining of some spasms in her leg currently. Patient states the pain is mostly located at the front of her knee. Patient says she has urinated several times since surgery yesterday. Patient says he hasn't had bowel movement yet, however, patient says she has been passing gas. Patient denies chest pain, fever, shortness breath, nausea, vomiting, change in vision, loss of bowel/bladder control. Objective - Vital Signs Vital signs: Vital Signs Temp 98.3 F 01/03/22 07:25 Pulse 84 01/03/22 07:25 Resp 18 01/03/22 07:25 BP 140/84 01/03/22 07:25 Pulse Ox 96 01/03/22 07:25 FiO2 Intake & Output 01/02/22 01/03/22 01/03/22 18:59 06:59 18:59 Intake Total 1851 Output Total 45 Balance 1806 Weight 81.6 kg 81.6 kg Intake: IV 1851 Output: Estimated Blood Loss 45 Other: Voiding Method Toilet # Voids 4 - Exam Right knee: Incision is clean, dry, and intact. The exofin fusion tape is in good condition. There is minimal soft tissue swelling and ecchymosis surrounding the medial and lateral aspects of the incision. Calf is soft, no tenderness with palpation. Plantar flexion, dorsiflexion, EHL, FHL are intact. Sensory exam to light touch throughout the extremity is intact, dorsal pedis pulses 2+. - Labs CBC & Chem 7: 01/03/22 05:39 01/03/22 05:39 Labs: Abnormal Lab Results - Last 24 Hours (Table) 01/02/22 01/02/22 01/03/22 Range/Units 13:40 19:56 05:39 WBC 12.99 H (4.50-10.00) X 10*3/uL Neutrophils # 10.55 H (1.80-7.70) X 10*3/uL Eosinophils # 0 L (0.04-0.35) X 10*3/uL Carbon Dioxide (20.0-27.5) mmol/L Anion Gap (10.00-18.00) mmol/L BUN (9.0-27.0) mg/dL Glucose (70-110) mg/dL POC Glucose (mg/dL) 163 H 264 H (70-110) mg/dL 01/03/22 01/03/22 Range/Units 05:39 07:04 WBC (4.50-10.00) X 10*3/uL Neutrophils # (1.80-7.70) X 10*3/uL Eosinophils # (0.04-0.35) X 10*3/uL Carbon Dioxide 29.6 H (20.0-27.5) mmol/L Anion Gap 5.40 L (10.00-18.00) mmol/L BUN 8.8 L (9.0-27.0) mg/dL Glucose 178 H (70-110) mg/dL POC Glucose (mg/dL) 172 H (70-110) mg/dL Assessment and Plan Assessment: 1. Right knee osteoarthritis - Postoperative day 1 status post right total knee arthroplasty Plan: 1. Right knee osteoarthritis - right total knee arthroplasty for yesterday, 01/02/2022. Patient stable at bedside this morning. Patient does have a walker for home. Discharge home today with health services 2. Appreciate medical management 3. Pain management - Tylenol No. 3 with codeine; gabapentin 4. DVT prophylaxis - Lovenox in hospital cycling going home with aspirin 81 mg twice a day 30 days 5. GI prophylaxis - Colace 6. PT/OT - weightbearing as tolerated with walker 7. Encourage incentive spirometer use 8. Discharge planning - home today with health services Time with Patient: Less than 30
--- NOTE | 2022-01-03 10:37 | P.DS ---
Providers Date of admission: 01/02/2022 Expected date of discharge: 01/03/22 Attending physician: Rigoberto Pacheco Consults: 01/02/22 16:17 Consult Physician Routine Consulting Provider: Valentino Juarez Reason/Comments: Medical management Do you want consulting provider notified?: Yes Primary care physician: Valentino Juarez Hospital Course: Date of admission: 01/02/2022 Date of discharge: 01/03/2022 Admission diagnosis: Right knee osteoarthritis Discharge diagnosis: Same Attending physician: Dr. Pacheco Surgical procedures: Right Total knee arthroplasty Brief history: Patient is a 61-year-old female with a history of progressive primary right knee osteoarthritis. At this point patient has failed conservative treatment measures and has opted to proceed with a elective right total knee arthroplasty. Hospital course: Details of patient's surgery can be found in operative report. Patient tolerated the procedure well and was subsequently transported to orthopedic floor. Patient's orthopeidc and medical care was provided daily. Patient had daily laboratory tests performed for evaluation of overall blood counts. Patient had daily physical therapy to include strengthening range of motion as well as education with walker ambulation. Patient was treated with Lovenox for their postoperative DVT prophylaxis during their inpatient stay. Patient was noted to have a relatively uneventful postoperative course. Patient reported satisfactory pain control with oral pain medications by postoperative day 1. Patient showed satisfactory progress with physical therapy. Patient moved steadily through the program and had no difficulty meeting the goals by postoperative day 1. Given patient's otherwise satisfactory course and having met physical therapy goals, plan is to discharge patient home with health services on postoperative day 1. Discharge condition/disposition: Patient will be discharged home with health services in stable condition. Discharge medications: Instructions are given on resumption of patient's normal daily medications per primary care recommendation, in addition patient will be prescribed Elizabeth; aspirin 81 mg twice a day 30 days; Colace. Discharge instructions: 1. Wound care and infection precautions, keep incision dry and covered while showering, no lotions, creams, moisturizers. No soaking, tubs, pools, hottubs. Do not scrub over the incision. 2. Weight-bear as tolerated with walker / cane until follow-up. 3. Ice and elevate when necessary. Do not exceed 20 minutes per hour with ice pack. 4. Utilize compression sleeve until seen at first follow up appointment. 5. Visiting nursing care. 6. Home physical therapy. 7. Pain meds and anticoagulants per prescription. 8. Pain medication has potential to cause constipation. Increase oral fluid and fiber intake. Contact primary care provider if you have not had a bowel movement within 48 hours after discharge 9. No anti-inflammatory medication until discussed at first post operative visit, this including Motrin, Aleve, Mobic, Diclofenac. 10. Follow up in office at 2 weeks postop with Juan Manuel Sharma PA-C / Rob Ordaz PA-C 11. Follow up with your primary care doctor 7-10 days after discharge. 12. Contact [facility] with any questions, . Keep incision clean, dry, intact. While showering, cover silver foam dressing was Saran wrap. Silver foam dressing may be removed on 01/09/2022. Medications: Elizabeth; aspirin 81 mg twice a day 30 days, Colace. Assessment: Right knee osteoarthritis Procedures: Right total knee arthroplasty Patient Condition at Discharge: Good Plan - Discharge Summary Discharge Rx Participant: No New Discharge Prescriptions: New Aspirin [Adult Low Dose Aspirin EC] 81 mg PO BID #60 tab Docusate [Colace] 100 mg PO DAILY #30 capsule HYDROcodone/APAP 7.5-325MG [Elizabeth 7.5] 1 - 2 each PO Q6HR PRN #36 tab PRN Reason: Pain Continue Atorvastatin [Lipitor] 40 mg PO HS Glimepiride [Amaryl] 2 mg PO BID lisinopriL [Zestril] 20 mg PO BID Cholecalciferol [Vitamin D3 (25 Mcg = 1000 Iu)] 1,000 unit PO BID Melatonin 5 mg PO HS [place]-3 Fatty Acids/Fish Oil [Fish Oil 1,000 mg Softgel] 1 cap PO TID Gabapentin [Neurontin] 300 mg PO TID Pioglitazone [Actos] 15 mg PO QAM hydrALAZINE HCL 25 mg PO BID amLODIPine [Norvasc] 5 mg PO HS Semaglutide [Ozempic] 0.25 mg INJ TH Latanoprost/Pf [Latanoprost 0.005% Eye Drop] 1 drop BOTH EYES HS sitaGLIPtin PHOS/metFORMIN HCL [Janumet 50-500 mg Tablet] 1 each PO BID Dapagliflozin Propanediol [Farxiga] 5 mg PO BID Vitamin B Complex 1 each PO DAILY Metoprolol Succinate (ER) [Toprol XL] 25 mg PO DAILY DULoxetine HCL 20 mg PO BID Linagliptin [Tradjenta] 1 tab PO DAILY Discontinued Propranolol HCl [Propranolol HCl ER] 60 mg PO BID Discharge Medication List Atorvastatin [Lipitor] 40 mg PO HS 11/25/13 [History] Glimepiride [Amaryl] 2 mg PO BID 11/25/13 [History] Cholecalciferol [Vitamin D3 (25 Mcg = 1000 Iu)] 1,000 unit PO BID 12/30/15 [History] lisinopriL [Zestril] 20 mg PO BID 12/30/15 [History] Melatonin 5 mg PO HS 10/14/16 [History] [place]-3 Fatty Acids/Fish Oil [Fish Oil 1,000 mg Softgel] 1 cap PO TID 10/14/16 [History] Gabapentin [Neurontin] 300 mg PO TID 12/30/18 [History] Dapagliflozin Propanediol [Farxiga] 5 mg PO BID 12/13/20 [History] Latanoprost/Pf [Latanoprost 0.005% Eye Drop] 1 drop BOTH EYES HS 12/13/20 [History] Pioglitazone [Actos] 15 mg PO QAM 12/13/20 [History] Semaglutide [Ozempic] 0.25 mg INJ TH 12/13/20 [History] Vitamin B Complex 1 each PO DAILY 12/13/20 [History] amLODIPine [Norvasc] 5 mg PO HS 12/13/20 [History] hydrALAZINE HCL 25 mg PO BID 12/13/20 [History] sitaGLIPtin PHOS/metFORMIN HCL [Janumet 50-500 mg Tablet] 1 each PO BID 12/13/20 [History] DULoxetine HCL 20 mg PO BID 12/28/21 [History] Linagliptin [Tradjenta] 1 tab PO DAILY 12/28/21 [History] Metoprolol Succinate (ER) [Toprol XL] 25 mg PO DAILY 12/28/21 [History] Aspirin [Adult Low Dose Aspirin EC] 81 mg PO BID #60 tab 01/03/22 [Rx] Docusate [Colace] 100 mg PO DAILY #30 capsule 01/03/22 [Rx] HYDROcodone/APAP 7.5-325MG [Elizabeth 7.5] 1 - 2 each PO Q6HR PRN #36 tab 01/03/22 [Rx] Follow up Appointment(s)/Referral(s): [facility], [NON-STAFF] - As Needed [facility] [NON-STAFF] - As Needed (Continuous Passive Motion knee machine) Polo Sharma, PAC [PHYSICIAN MAPPING TECHNICIAN] - 2 Weeks Patient Instructions/Handouts: *Surgery [facility] - On-Q Pain Pump Discharge Instructions, Knee Replacement (DC) Activity/Diet/Wound Care/Special Instructions: Discharge instructions: 1. Wound care and infection precautions, keep incision dry and covered while showering, no lotions, creams, moisturizers. No soaking, tubs, pools, hottubs. Do not scrub over the incision. 2. Weight-bear as tolerated with walker / cane until follow-up. 3. Ice and elevate when necessary. Do not exceed 20 minutes per hour with ice pack. 4. Utilize compression sleeve until seen at first follow up appointment. 5. Visiting nursing care. 6. Home physical therapy. 7. Pain meds and anticoagulants per prescription. 8. Pain medication has potential to cause constipation. Increase oral fluid and fiber intake. Contact primary care provider if you have not had a bowel movement within 48 hours after discharge 9. No anti-inflammatory medication until discussed at first post operative visit, this including Motrin, Aleve, Mobic, Diclofenac. 10. Follow up in office at 2 weeks postop with Juan Manuel Sharma PA-C / Rob Ordaz PA-C 11. Follow up with your primary care doctor 7-10 days after discharge. 12. Contact [facility] with any questions, . Keep incision clean, dry, intact. While showering, cover silver foam dressing was Saran wrap. Silver foam dressing may be removed on 01/09/2022. Medications: Elizabeth; aspirin 81 mg twice a day 30 days, Colace. Discharge Disposition: HOME WITH HOME HEALTH SERVICES
[2022-01-03 11:15] LABS: Glucose,Whole Blood 172 mg/dL (70-110)
== END 2022-01-03 12:30 | disposition home health service (06) ==
LOC: OR 12:51 → 4SSUR 16:31 → OR 01-03 12:30
PROVIDERS: ATTEND Orthopaedic Surgery
DX: M17.11 Unilateral primary osteoarthritis, right knee (principal); G89.18 Other acute postprocedural pain
CPT/HCPCS: 97161; 64999; 64448; 76942; 80048; 85025; 73560; 27447; C1776; C1713 ×2; J2250; J1200; J1100; J0690 ×3; J2405; J3010; J1650; J1170 ×2; J2795; 88300

== ENCOUNTER → 2022-06-08 | Outpatient (CLI) | payer MEDICARE, OTHER | END | disposition home or self-care (01) | LOC: LABWHC1 08:30 | PROVIDERS: ATTEND Internal Medicine | DX: E11.65 Type 2 diabetes mellitus with hyperglycemia (principal) | CPT/HCPCS: 36415; 83036 ==

== ENCOUNTER → 2022-07-05 | Outpatient (CLI) | payer MEDICARE, OTHER ==
--- NOTE | 2022-07-05 14:23 | MM ---
Reason for Exam: Clinical finding. Last mammogram was performed 2 year(s) and 1 month(s) ago. Indicated Problems: Lump or thickening of the left side for 2 Year(s). Patient History: Menarche at age 13. First Full-Term at age 18. Hysterectomy at age 52. Postmenopausal. Patient has history of breast feeding. Patient used Hormonal Contraceptives for 15 years. Maternal grandmother had breast cancer. Maternal aunt had breast cancer. Maternal aunt had breast cancer. Risk Values: Selena 5 year model risk: 1.1%. NCI Lifetime model risk: 5.0%. Prior Study Comparison: 09/06/2004 Bilateral Diagnostic Mammogram, [facility]. 01/07/2014 Screening Mammogram, [facility]. 05/13/2015 Screening Mammogram, [facility]. 12/09/2018 Bilateral Screening Mammogram, [facility]. 05/26/2020 Bilateral Screening Mammogram, [facility]. Tissue Density: There are scattered fibroglandular densities. Findings: Analyzed By CAD. No suspicious masses, calcifications, or architectural distortion within either breast. Benign-appearing round calcifications within both breasts. Overall Assessment: Benign, BI-RAD 2 Management: Screening Mammogram of both breasts in 1 year. A clinical breast exam by your physician is recommended on an annual basis and results should be correlated with mammographic findings. This exam should not preclude additional follow-up of suspicious palpable abnormalities. Results were given to the patient verbally at the time of exam. Electronically signed and approved by: Kash Perez D.O.
--- NOTE | 2022-07-05 14:53 | US ---
EXAMINATION TYPE: US extremity nonvasc mass LT DATE OF EXAM: 07/05/2022 COMPARISON: NONE CLINICAL HISTORY: M71.22 SYNOVIAL CYST OF POPLITEAL SPACE [BAKE. Left calf palpable area x couple mon ths FINDINGS: Left upper lateral calf: scanned at patient's area of concern - appears wnl. No solid or cystic lesio n identified. Right upper lateral calf for comparison - appears wnl IMPRESSION: No ultrasound evidence corresponding to patient's palpable abnormality.
== END | disposition home or self-care (01) ==
LOC: RADMAMWWP 13:52
PROVIDERS: ATTEND Internal Medicine
DX: M71.22 Synovial cyst of popliteal space [Baker], left knee (principal); N63.0 Unspecified lump in unspecified breast; Z78.0 Asymptomatic menopausal state; Z80.3 Family history of malignant neoplasm of breast
CPT/HCPCS: 77066; 76882; G0279; 77062

== ENCOUNTER → 2023-01-27 | Outpatient (CLI) | payer MEDICARE, OTHER ==
[2023-01-27 23:52] LABS: Basophils # (A) 0.08 X 10*3/uL (0.00-0.10); Basophils % (A) 0.8 %; Eosinophils # (A) 0.18 X 10*3/uL (0.04-0.35); Eosinophils % (A) 1.8 %; HCT 45.2 % (37.2-46.3); HGB 14.5 d/dL (12.0-15.0); Lymphocytes # (A) 2.56 X 10*3/uL (0.90-5.00); Lymphocytes % (A) 25.4 %; MCH 27.4 pg (27.0-32.0); MCHC 32.1 d/dL (32.0-37.0); MCV 85.4 FL (80.0-97.0); Mean Platelet Volume 9.4 FL (9.5-12.2); Monocytes # (A) 0.61 X 10*3/uL (0.20-1.00); Monocytes % (A) 6.1 %; NRBC Per 100 WBC 0 X 10*3/uL (0.00-0.01); Neutrophils # (A) 6.61 X 10*3/uL (1.80-7.70); Neutrophils % (A) 65.6 %; Platelet Count 347 X 10*3/uL (140-440); RBC 5.29 X 10*6/uL (4.10-5.20); RDW 14.5 % (11.5-14.5); WBC 10.07 X 10*3/uL (4.50-10.00)
[2023-01-28 00:03] LABS: Erythrocyte Sedimentation Rate 7 mm/Hr (0-30)
[2023-01-28 08:47] LABS: % Iron Saturation 14.38 (12.00-45.00); ALT 20 U/L (8-44); AST 17 U/L (13-35); Albumin 4.5 d/dL (3.8-4.9); Albumin/Globulin Ratio 2.37 Ratio (1.60-3.17); Alkaline Phosphatase 99 U/L (41-126); BUN/Creat Ratio 17.57 Ratio (12.00-20.00); Blood Urea Nitrogen 12.3 mg/dL (9.0-27.0); C Reactive Protein <0.30 mg/dL (0.00-0.80); Calcium 10.5 mg/dL (8.7-10.3); Carbon Dioxide 22.5 mmol/L (21.6-31.8); Chloride 101 mmol/L (96-109); Chol/HDL Ratio 3.88 Ratio; Creatine Kinase 59 U/L (26-186); Globulin 1.9 d/dL (1.6-3.3); Glucose 163 mg/dL (70-110); Iron 63 UG/DL (50-170); LDL Cholesterol,Calculated 79.5 mg/dL (0.0-131.0); Magnesium 1.9 mg/dL (1.5-2.4); Potassium 4.4 mmol/L (3.5-5.5); Sodium 139 mmol/L (135-145); Total Bilirubin 0.2 mg/dL (0.3-1.2); Total Iron Binding Capacity 438 UG/DL (228-460); Total Protein 6.4 d/dL (6.2-8.2); Uric Acid 2.6 mg/dL (2.9-7.7)
[2023-01-28 09:43] LABS: Microalbumin Creatinine Ratio <20 mg/g Cr (0-30)
== END | disposition home or self-care (01) ==
LOC: LABWHC1 09:11
PROVIDERS: ATTEND Internal Medicine
DX: Z00.00 Encounter for general adult medical examination without abnormal findings (principal); I10 Essential (primary) hypertension; D64.9 Anemia, unspecified; E78.5 Hyperlipidemia, unspecified; E11.65 Type 2 diabetes mellitus with hyperglycemia; E55.9 Vitamin D deficiency, unspecified; M10.9 Gout, unspecified
CPT/HCPCS: 36415; 80053; 80061; 82043; 82306; 82550; 82570; 83036; 83540; 83550; 83735; 84443; 84550; 85025; 85652; 86140

== ENCOUNTER → 2023-04-25 | Outpatient (CLI) | payer MEDICARE, OTHER ==
[2023-04-25 12:05] LABS: T4, Free (Free Thyroxine) 1.38 ng/dL (0.80-1.80)
== END | disposition home or self-care (01) ==
LOC: LABWHC1 07:08
PROVIDERS: ATTEND Psychiatry & Neurology Neurology
DX: H53.2 Diplopia (principal); G62.9 Polyneuropathy, unspecified; E27.9 Disorder of adrenal gland, unspecified; M21.371 Foot drop, right foot
CPT/HCPCS: 36415; 82533; 82607; 84207; 84439; 84443

== ENCOUNTER → 2023-09-03 | Outpatient (CLI) | payer MEDICARE, OTHER ==
[2023-09-03 22:51] LABS: Microalbumin Creatinine Ratio <22 mg/g Cr (0-30)
== END | disposition home or self-care (01) ==
LOC: LABWHC1 07:57
PROVIDERS: ATTEND Internal Medicine
DX: Z51.81 Encounter for therapeutic drug level monitoring (principal); E11.65 Type 2 diabetes mellitus with hyperglycemia; R80.9 Proteinuria, unspecified; Z79.899 Other long term (current) drug therapy
CPT/HCPCS: 36415; 80171; 82043; 82570; 82947; 83036

== ENCOUNTER → 2023-09-07 | Outpatient (CLI) | payer MEDICARE, OTHER ==
--- NOTE | 2023-09-12 09:44 | MM ---
Reason for Exam: Screening (asymptomatic). Last mammogram was performed 1 year(s) and 2 month(s) ago. Patient History: Menarche at age 13. First Full-Term at age 18. Hysterectomy at age 52. Postmenopausal. Patient used Hormonal Contraceptives for 15 years. Maternal grandmother had breast cancer. Maternal aunt had breast cancer. Maternal aunt had breast cancer. Risk Values: Selena 5 year model risk: 1.1%. NCI Lifetime model risk: 4.9%. Prior Study Comparison: 05/13/2015 Screening Mammogram, [facility]. 12/09/2018 Bilateral Screening Mammogram, [facility]. 05/26/2020 Bilateral Screening Mammogram, [facility]. 07/05/2022 Bilateral MG 3D diag mammo w/cad KELLIE, [facility]. Tissue Density: There are scattered areas of fibroglandular density. Findings: Analyzed By CAD. There is no suspicious group of microcalcifications or new suspicious mass in either breast. Overall Assessment: Benign, BI-RAD 2 Management: Screening Mammogram of both breasts in 1 year. . Patient should continue monthly self-breast exams. A clinical breast exam by your physician is recommended on an annual basis. This exam should not preclude additional follow-up of suspicious palpable abnormalities. Note on Selena scores and lifetime risk: 1. A Selena score greater than 3% is considered moderate risk. If this is the case, consider specialist referral to assess eligibility for a risk reducing agent. 2. If overall lifetime risk for the development of breast cancer is 20% or higher, the patient may qualify for future screening with alternating mammogram and breast MRI. Electronically signed and approved by: Sebastián Barber M.D. Radiologis
== END | disposition home or self-care (01) ==
LOC: RADMAMWWP 13:33
PROVIDERS: ATTEND Internal Medicine
DX: Z12.31 Encounter for screening mammogram for malignant neoplasm of breast (principal); Z80.3 Family history of malignant neoplasm of breast; Z78.0 Asymptomatic menopausal state
CPT/HCPCS: 77063; 77067

== ENCOUNTER → 2024-02-02 | Outpatient (CLI) | payer MEDICARE, OTHER ==
[2024-02-02 11:08] LABS: Creatinine,Urine Random 37.9 mg/dL; Protein/Creatinine Ratio,Urine 0.369
[2024-02-02 22:50] LABS: Basophils # (A) 0.07 X 10*3/uL (0.00-0.10); Basophils % (A) 0.8 %; Eosinophils # (A) 0.17 X 10*3/uL (0.04-0.35); Eosinophils % (A) 1.8 %; HCT 46.9 % (37.2-46.3); HGB 14.7 g/dL (12.0-15.0); Lymphocytes # (A) 2.53 X 10*3/uL (0.90-5.00); Lymphocytes % (A) 27.4 %; MCH 28.7 pg (27.0-32.0); MCHC 31.3 g/dL (32.0-37.0); MCV 91.6 FL (80.0-97.0); Mean Platelet Volume 9.6 FL (9.5-12.2); Monocytes # (A) 0.47 X 10*3/uL (0.20-1.00); Monocytes % (A) 5.1 %; NRBC Per 100 WBC 0 X 10*3/uL (0.00-0.01); Neutrophils # (A) 5.98 X 10*3/uL (1.80-7.70); Neutrophils % (A) 64.6 %; Platelet Count 315 X 10*3/uL (140-440); RBC 5.12 X 10*6/uL (4.10-5.20); RDW 13.6 % (11.5-14.5); WBC 9.25 X 10*3/uL (4.50-10.00)
[2024-02-02 23:06] LABS: Erythrocyte Sedimentation Rate 11 mm/Hr (0-30)
[2024-02-02 23:16] LABS: Microalbumin Creatinine Ratio <32 mg/g Cr (0-30); Urine Creatinine 37.1 mg/dL (28.0-217.0)
[2024-02-02 23:31] LABS: % Iron Saturation 14.25 (12.00-45.00); ALT 24 U/L (8-44); AST 20 U/L (13-35); Albumin 4.3 g/dL (3.8-4.9); Albumin/Globulin Ratio 2.05 Ratio (1.60-3.17); Alkaline Phosphatase 97 U/L (41-126); BUN/Creat Ratio 14.17 Ratio (12.00-20.00); Blood Urea Nitrogen 8.5 mg/dL (9.0-27.0); C Reactive Protein <0.30 mg/dL (0.00-0.80); Calcium 9.8 mg/dL (8.7-10.3); Carbon Dioxide 26.2 mmol/L (21.6-31.8); Chloride 101 mmol/L (96-109); Chol/HDL Ratio 5.15 Ratio; Creatine Kinase 52 U/L (26-186); Globulin 2.1 g/dL (1.6-3.3); Glucose 262 mg/dL (70-110); Iron 60 UG/DL (50-170); LDL Cholesterol,Calculated 79.3 mg/dL (0.0-131.0); Magnesium 1.9 mg/dL (1.5-2.4); Potassium 4.5 mmol/L (3.5-5.5); Sodium 139 mmol/L (135-145); Total Bilirubin 0.2 mg/dL (0.3-1.2); Total Iron Binding Capacity 421 UG/DL (228-460); Total Protein 6.4 g/dL (6.2-8.2)
== END | disposition home or self-care (01) ==
LOC: LABWHC1 08:33
PROVIDERS: ATTEND Internal Medicine
DX: Z00.00 Encounter for general adult medical examination without abnormal findings (principal); I10 Essential (primary) hypertension; D64.9 Anemia, unspecified; E78.5 Hyperlipidemia, unspecified; E87.8 Other disorders of electrolyte and fluid balance, not elsewhere classified; E11.65 Type 2 diabetes mellitus with hyperglycemia; E03.9 Hypothyroidism, unspecified; E66.9 Obesity, unspecified; M81.0 Age-related osteoporosis without current pathological fracture; E55.9 Vitamin D deficiency, unspecified; R80.9 Proteinuria, unspecified
CPT/HCPCS: 36415; 80053; 80061; 82043; 82306; 82550; 82570; 82728; 83036; 83540; 83550; 83735; 84156; 84443; 85025; 85652; 86140

== ENCOUNTER → 2024-02-27 | Outpatient (CLI) | payer MEDICARE, OTHER ==
[2024-02-27 15:37] LABS: Rheumatoid Factor, Qnt <15 IU/mL (0-15)
[2024-02-27 18:55] LABS: Cyclic Citrull Pep IgG Unit <1.5 U/mL (<=3.9); Cyclic Citrullinated Pep IgG Negative
== END | disposition home or self-care (01) ==
LOC: LABWHC1 12:05
PROVIDERS: ATTEND Internal Medicine
DX: M06.4 Inflammatory polyarthropathy (principal)
CPT/HCPCS: 36415; 86140; 86200; 86431

== ENCOUNTER → 2024-09-19 | Outpatient (CLI) | payer MEDICARE, OTHER ==
--- NOTE | 2024-09-19 09:39 | MM ---
Reason for Exam: Screening (asymptomatic). Last screening mammogram was performed 12 month(s) ago. Patient History: Menarche at age 13. First Full-Term at age 18. Hysterectomy at age 52. Postmenopausal. Patient used Hormonal Contraceptives for 15 years. Maternal grandmother had breast cancer. Maternal aunt had breast cancer. Maternal aunt had breast cancer. Risk Values: Selena 5 year model risk: 1.2%. NCI Lifetime model risk: 4.7%. Prior Study Comparison: 05/26/2020 Bilateral Screening Mammogram, [facility]. 07/05/2022 Bilateral MG 3D diag mammo w/cad KELLIE, [facility]. 09/07/2023 Bilateral MG 3D screening mammo w/cad, [facility]. Tissue Density: There are scattered areas of fibroglandular density. Findings: Analyzed By CAD. Right breast: There is no suspicious group of microcalcifications or new suspicious mass. Left breast: There is no suspicious group of microcalcifications or new suspicious mass. Overall Assessment: Negative, BI-RAD 1 Management: Screening Mammogram of both breasts in [address] [facility] will attempt to contact patient to return for supplemental views and ultrasound if indicated. Patient should continue monthly self-breast exams. A clinical breast exam by your physician is recommended on an annual basis. This exam should not preclude additional follow-up of suspicious palpable abnormalities. Note on Selena scores and lifetime risk: 1. A Selena score greater than 3% is considered moderate risk. If this is the case, consider specialist referral to assess eligibility for a risk reducing agent. 2. If overall lifetime risk for the development of breast cancer is 20% or higher, the patient may qualify for future screening with alternating mammogram and breast MRI. [facility], , 09/19/2024 9:36 AM. Electronically signed and approved by: Ayden Alba DO
== END | disposition home or self-care (01) ==
LOC: RADMAMWWP 09:10
PROVIDERS: ATTEND Internal Medicine
DX: Z12.31 Encounter for screening mammogram for malignant neoplasm of breast (principal); R92.323 Mammographic fibroglandular density, bilateral breasts; Z78.0 Asymptomatic menopausal state; Z92.0 Personal history of contraception; Z80.3 Family history of malignant neoplasm of breast
CPT/HCPCS: 77063; 77067

== ENCOUNTER → 2024-10-10 | Outpatient (CLI) | payer MEDICARE, OTHER ==
[2024-10-10 15:36] LABS: Anion Gap 15.30 mmol/L (4.00-12.00); BUN/Creat Ratio 20.00 Ratio (12.00-20.00); Blood Urea Nitrogen 12.0 mg/dL (9.0-27.0); Carbon Dioxide 23.7 mmol/L (21.6-31.8); Chloride 100 mmol/L (96-109); Glucose 178 mg/dL (70-110); Potassium 4.1 mmol/L (3.5-5.5); Sodium 139 mmol/L (135-145)
[2024-10-10 15:37] LABS: ALT 22 U/L (8-44); AST 17 U/L (13-35); Albumin 4.3 g/dL (3.8-4.9); Albumin/Globulin Ratio 2.87 Ratio (1.60-3.17); Alkaline Phosphatase 97 U/L (41-126); Calcium 9.7 mg/dL (8.7-10.3); Globulin 1.5 g/dL (1.6-3.3); T4, Free (Free Thyroxine) 1.39 ng/dL (0.80-1.80); Total Protein 5.8 g/dL (6.2-8.2)
== END | disposition home or self-care (01) ==
LOC: LABWHC1 09:23
PROVIDERS: ATTEND Nurse Practitioner Gerontology
DX: E11.65 Type 2 diabetes mellitus with hyperglycemia (principal); H04.012 Acute dacryoadenitis, left lacrimal gland
CPT/HCPCS: 36415; 80053; 84439; 84443; 84445; 84481